=== PATIENT | male | born 1950 | race Caucasian/White ===

== ENCOUNTER 2016-08-11 15:23 | Emergency (ER) | payer OTHER ==
[~2016-08-11] VITALS: Ht 177.8 cm; Wt 55.0 kg
[~2016-08-11 15:23] MED LIST: ATEN-102 PO; POLY119S PO; PRAV40TA2 PO
[2016-08-11 15:26] VITALS: BP 120/68; PULSE 90; RESP 24; TEMP 97.5; O2SAT 89
== END 2016-08-11 19:34 | disposition left against medical advice (07) ==
LOC: NED 15:23
DX: R10.9 Unspecified abdominal pain (principal); Z53.21 Procedure and treatment not carried out due to patient leaving prior to being seen by health care provider
CPT/HCPCS: 99281

== ENCOUNTER 2016-08-28 12:29 | Observation (INO) | payer OTHER ==
[~2016-08-28] VITALS: Ht 177.8 cm; Wt 52.0 kg
[2016-08-28] VITALS (9 sets, daily range): BP systolic 86–126; BP diastolic 56–72; PULSE 69–94; RESP 14–22; TEMP 97.9–98.2; O2SAT 93–96
[2016-08-28] MEDS ORDERED: ONDA1TAB17 PO (13:15)
[2016-08-28] MEDS ORDERED: ATEN25TA PO (13:15)
[2016-08-28] MEDS ORDERED: OXYC1CON3 PO (13:15)
[2016-08-28] MEDS ORDERED: ALBU6.7H INH (13:15)
[2016-08-28] MEDS ORDERED: MULT-207 PO (13:15)
[2016-08-28] MEDS ORDERED: SPIRCAP INH (13:15)
[2016-08-28] MEDS ORDERED: SYMB160A INH (13:15)
[2016-08-28] MEDS ORDERED: OMEP20TA PO (13:15)
[2016-08-28] MEDS ORDERED: FENT50DI T-DERMAL (13:16)
[2016-08-28] MEDS ORDERED: SODIUM CHLOR 0.9% 1000 ML INJ 1,000 ML IV SCH (13:27)
--- NOTE | 2016-08-28 13:27 | PD ---
HPI Chief Complaint: GI Complaint Time Seen by Provider: 13:24 Travel History International Travel<30 days: No Contact w/Intl Traveler<30days: No Traveled to known affect area: No History of Present Illness HPI 66-year-old male with history of HTN, COPD, nonresectable gastric cancer, followed by Dr. Dos Santos presents to the ED for evaluation of intermittent abdominal pain, nausea and vomiting. The patient endorses several episodes of nonbloody, nonbilious vomiting over the last week. He states last bowel movement was 7 days ago. He endorses low fluid and food intake secondary to nausea and vomiting. He endorses chronic, nonproductive cough. No worse today. He denies chest pain, palpitations, back pain, dysuria. He endorses compliance with his daily medications. PFSH Past Medical History Chemotherapy: Yes (STOMACH CA) COPD: Yes Hypertension: Yes Respiratory: Yes (COPD) Influenza Vaccination: Yes Past Surgical History Surgical History: No Previous Surgery Social History Alcohol Use: Yes (quit 3 months. ) Tobacco Use: Yes (1 PPD) Substance Use: No Allergies-Medications (Allergen,Severity, Reaction): Coded Allergies: No Known Allergies (Unverified , 08/28/16) Reported Meds & Prescriptions Reported Meds & Active Scripts Active Reported Fentanyl Patch 72 HR (Fentanyl) 50 Mcg/Hr Patch 50 Mcg T-DERMAL Q72H Remove old patch when new one placed. Symbicort Inh (Budesonide/Formoterol Fumarate) 160-4.5 Mcg/Act Aero 1 Puff INH Q12HR Proventil Hfa 6.7 GM Inh (Albuterol Sulfate) 90 Mcg/Act Aer 2 Puff INH Q4-6H PRN Atenolol 25 Mg Tab 25 Mg PO DAILY One Daily (Multiple Vitamin) 1 Tab 1 Tab PO DAILY Spiriva Handihaler (Tiotropium Inh) 18 Mcg Cap 18 Mcg INH DAILY 1 capsule = 18 mcg Ondansetron (Ondansetron HCl) 8 Mg Tab 8 Mg PO TID Omeprazole 20 Mg Tab 20 Mg PO DAILY Oxycodone Liq (Oxycodone HCl) 20 Mg/Ml Conc 5 Mg PO Q6H Review of Systems Except as stated in HPI: all other systems reviewed are Neg Physical Exam Narrative GENERAL: Well-nourished, cachectic, pleasant white male in no acute distress. SKIN: Warm and dry. HEAD: Normocephalic. EYES: No scleral icterus. No injection or drainage. NECK: Supple, trachea midline. No JVD or lymphadenopathy. CARDIOVASCULAR: Regular rate and rhythm without murmurs, gallops, or rubs. RESPIRATORY: Breath sounds equal bilaterally. Diffuse, mild expiratory wheezing. No accessory muscle use. GASTROINTESTINAL: Abdomen scaphoid, soft, non-tender, nondistended. Active bowel sounds. MUSCULOSKELETAL: No cyanosis, or edema. BACK: Nontender without obvious deformity. No CVA tenderness. Data Data Last Documented VS Vital Signs Date Time Temp Pulse Resp B/P Pulse Ox O2 Delivery O2 Flow Rate FiO2 08/28/16 13:37 96 Room Air 08/28/16 13:06 98.2 82 18 86/64 Orders Complete Blood Count With Diff (08/28/16 13:27) Comprehensive Metabolic Panel (08/28/16 13:27) Lipase (08/28/16 13:27) Lactic Acid (08/28/16 13:27) Prothrombin Time / Inr (Pt) (08/28/16 13:27) Act Partial Throm Time (Ptt) (08/28/16 13:27) Urinalysis - C+S If Indicated (08/28/16 13:27) Iv Access Insert/Monitor (08/28/16 13:27) Ecg Monitoring (08/28/16 13:27) Oximetry (08/28/16 13:27) Morphine Inj (Morphine Inj) (08/28/16 13:30) Ondansetron Inj (Zofran Inj) (08/28/16 13:30) Sodium Chlor 0.9% 1000 Ml Inj (Ns 1000 M (08/28/16 13:27) Sodium Chloride 0.9% Flush (Ns Flush) (08/28/16 13:30) Potassium Chloride (Kcl) (08/28/16 14:45) Admit Order (Ed Use Only) (08/28/16 14:53) Labs Laboratory Tests Test 08/28/16 08/28/16 13:42 13:59 White Blood Count 11.4 TH/MM3 Red Blood Count 4.48 MIL/MM3 Hemoglobin 13.4 GM/DL Hematocrit 40.1 % Mean Corpuscular Volume 89.4 FL Mean Corpuscular Hemoglobin 30.0 PG Mean Corpuscular Hemoglobin 33.5 % Concent Red Cell Distribution Width 18.0 % Platelet Count 302 TH/MM3 Mean Platelet Volume 8.7 FL Neutrophils (%) (Auto) 78.5 % Lymphocytes (%) (Auto) 13.5 % Monocytes (%) (Auto) 7.1 % Eosinophils (%) (Auto) 0.4 % Basophils (%) (Auto) 0.5 % Neutrophils # (Auto) 9.0 TH/MM3 Lymphocytes # (Auto) 1.5 TH/MM3 Monocytes # (Auto) 0.8 TH/MM3 Eosinophils # (Auto) 0.0 TH/MM3 Basophils # (Auto) 0.1 TH/MM3 CBC Comment DIFF FINAL Differential Comment Prothrombin Time 11.2 SEC Prothromb Time International 1.0 RATIO Ratio Activated Partial 29.9 SEC Thromboplast Time Sodium Level 131 MEQ/L Potassium Level 3.1 MEQ/L Chloride Level 91 MEQ/L Carbon Dioxide Level 30.1 MEQ/L Anion Gap 10 MEQ/L Blood Urea Nitrogen 11 MG/DL Creatinine 0.48 MG/DL Estimat Glomerular Filtration 174 ML/MIN Rate Random Glucose 104 MG/DL Lactic Acid Level 1.0 mmol/L Calcium Level 9.1 MG/DL Total Bilirubin 0.5 MG/DL Aspartate Amino Transf 20 U/L (AST/SGOT) Alanine Aminotransferase 24 U/L (ALT/SGPT) Alkaline Phosphatase 99 U/L Total Protein 6.4 GM/DL Albumin 2.7 GM/DL Lipase 39 U/L Urine Color YELLOW Urine Turbidity CLOUDY Urine pH 7.0 Urine Specific [place] 1.015 Urine Protein TRACE mg/dL Urine Glucose (UA) NEG mg/dL Urine Ketones 10 mg/dL Urine Occult Blood NEG Urine Nitrite NEG Urine Bilirubin NEG Urine Urobilinogen 4.0 MG/DL Urine Leukocyte Esterase NEG Urine RBC 2 /hpf Urine WBC LESS THAN 1 /hpf Urine Amorphous Sediment OCC Urine Bacteria FEW /hpf Urine Mucus FEW /lpf Microscopic Urinalysis Comment CULT NOT INDICATED MDM Medical Decision Making Medical Screen Exam Complete: Yes Emergency Medical Condition: Yes Differential Diagnosis Intractable nausea and vomiting versus gastric cancer versus malnutrition versus electrolyte abnormality versus dehydration versus other Narrative Course 66-year-old male with history of HTN, COPD, nonresectable gastric cancer, followed by Dr. Dos Santos presents to the ED for evaluation of intermittent abdominal pain, nausea and vomiting. The patient endorses several episodes of nonbloody, nonbilious vomiting over the last week. He states last bowel movement was 7 days ago. He endorses low fluid and food intake secondary to nausea and vomiting. He endorses chronic, nonproductive cough. Vitals reviewed. Patient is afebrile, hypotensive, 86/64 on presentation. Physical exam reveals a cachectic, ill-appearing white male in no acute distress. Abdomen scaphoid, soft, nontender. IV was established. Patient was placed on continuous monitoring. He is administered fluid bolus, Zofran, morphine. CBC: WBC 11.4, 7 8.5% neutrophils. Hemoglobin 13.4. INR 1.0. CMP: Sodium 131, chloride 91. Potassium 3.1. Lactic acid 1.0. Lipase 3.9. UA: No culture indicated. Patient was administered 40 mg potassium by mouth. Review of the patient's record reveals Dr. Dos Santos recommended admission to the hospital for nutritional support and restaging scans on last visit of 08/24. The patient declined at that time but he is now amenable to hospital admission. Plan to admit to medicine. Spoke with Dr. Schwartz he agrees to admit the patient for observation. We'll consult Dr. Dos Santos as well. Please see oncology and medicine notes for disposition. Diagnosis Primary Impression: Failure to thrive in adult Additional Impressions: Dehydration Hypotension Qualified Code: I95.9 - Hypotension, unspecified hypotension type Intractable nausea and vomiting Qualified Code: R11.2 - Intractable vomiting with nausea, unspecified vomiting type Chronic pain Qualified Code: G89.3 - Chronic pain due to neoplasm Argelia Sawyer Aug 28, 2016 13:27
[2016-08-28] MEDS ORDERED: ONDANSETRON HCL 4 MG/2 ML VIAL IVP ONE (13:30)
[2016-08-28] MEDS ORDERED: MORPHINE SULFATE 4 MG/ML INJ IV PUSH ONE (13:30)
[2016-08-28] MEDS ORDERED: SODIUM CHLORIDE 0.9% FLUSH 5 ML FLUSH IVF PRN (13:30)
[2016-08-28 14:11] LABS: BASOPHIL # 0.1 TH/MM3 (0-0.2); BASOPHIL % 0.5 % (0.0-2.0); EOSINOPHIL % 0.4 % (0.0-4.0); HEMATOCRIT 40.1 % (39.0-51.0); HEMO FLAGS DIFF FINAL; LYMPH % 13.5 % (9.0-44.0); LYMPHOCYTE # 1.5 TH/MM3 (1.0-4.8); MEAN CELL VOLUME 89.4 FL (80.0-100.0); MEAN CORPUSCULAR HGB CONC 33.5 % (32.0-36.0); MONO % 7.1 % (0.0-8.0); NEUT % 78.5 % (16.0-70.0); PLATELET COUNT 302 TH/MM3 (150-450); RED BLOOD COUNT 4.48 MIL/MM3 (4.50-5.90); WHITE BLOOD COUNT 11.4 TH/MM3 (4.0-11.0)
[2016-08-28 14:23] LABS: APTT (PATIENT) 29.9 SEC (24.3-30.1); PROTHROMBIN TIME - PATIENT 11.2 SEC (9.8-11.6)
[2016-08-28 14:24] LABS: ANION GAP 10 MEQ/L (5-15); AST (GOT) 20 U/L (15-37); BICARBONATE 30.1 MEQ/L (21.0-32.0); BLOOD UREA NITROGEN 11 MG/DL (7-18); CHLORIDE 91 MEQ/L (98-107); GLOMERULAR FILTRATION RATE 174 ML/MIN (>89); POTASSIUM 3.1 MEQ/L (3.5-5.1); SODIUM (NA) 131 MEQ/L (136-145)
[2016-08-28 14:25] LABS: BACTERIA, URINE FEW /hpf; BLOOD, URINE NEG (NEG); COMMENT (UR) CULT NOT INDICATED; CULTURE IF INDICATED CULT NOT INDICATED; GLUCOSE,URINE NEG (NEG); KETONE, URINE 10 mg/dL (NEG); MUCUS URINE FEW /lpf (OCC); NITRITE,URINE NEG (NEG); URINE COLOR YELLOW (YELLW/STRAW)
[2016-08-28 14:27] LABS: ALKALINE PHOSPHATASE 99 U/L (45-117); ALT (GPT) 24 U/L (12-78); TOTAL BILIRUBIN ADULT 0.5 MG/DL (0.2-1.0)
[2016-08-28] MEDS ORDERED: POTASSIUM CHLORIDE 20 MEQ CONTROLLED RELEASE TAB PO ONE (14:45)
[2016-08-28] MEDS: POTASSIUM CHLORIDE INJ 30 MEQ in DEXT 5%-NACL 0.9% 1000 ML INJ 1,000 ML IV SCH (16:26)
[2016-08-28] MEDS ORDERED: SODIUM CHLORIDE 0.9% FLUSH 5 ML FLUSH FLUSH PRN (16:30)
[2016-08-28] MEDS ORDERED: RESP: ALBUTEROL 2.5 MG/3 ML NEB (PRN) NEB (16:30)
[2016-08-28] MEDS ORDERED: ONDANSETRON HCL 4 MG/2 ML VIAL IVP PRN (16:30)
[2016-08-28] MEDS ORDERED: BISACODYL 10 MG SUPP PR PRN (16:30)
[2016-08-28] MEDS ORDERED: MORPHINE SULFATE 4 MG/ML INJ IV PRN ×2 (16:30)
[2016-08-28] MEDS ORDERED: ACETAMINOPHEN 325 MG TAB PO PRN ×2 (16:30)
[2016-08-28] MEDS ORDERED: NALOXONE HCL 0.4 MG/ML AMP IV PRN (16:30)
[2016-08-28 16:32] LABS: MAGNESIUM 1.5 MG/DL (1.5-2.5)
--- NOTE | 2016-08-28 16:39 | HHI.HP ---
[facility] Burton Brown MD Admission Diagnosis failure to thrive, hypotension, intractable nausea and vomiting Diagnoses: Chief Complaint: Abdominal pain, nausea, constipation Travel History International Travel<30 Days: No Contact w/Intl Traveler <30 Da: No Traveled to Known Affected Are: No History of Present Illness The patient is a 66-year-old male recently diagnosed with gastric adenocarcinoma who is presenting to the hospital with severe abdominal pain, nausea and constipation. The patient says he was diagnosed with gastric cancer about 2-1/2 months ago. He was having epigastric pain and thought it might of been an ulcer. He had imaging and went to the hospital and he was diagnosed. He says he has had radiation treatments and 2 chemotherapy treatments but those were put on hold because of insurance problems. The patient says he now has new oncologist who he met a couple weeks ago. The patient has had increasing abdominal pain in the epigastric area. He says the pain is an 8 out of 10 in severity. He has been having nausea and vomited the other day. He has not had a bowel movement in 5-7 days. He says he has not passing any gas. He has been taking pain medications at home. He tried taking Dulcolax and a gas pill. He says it has been a few days since he has eaten something. He says that when he urinates he has dribbling and some of having a full stream and this is new. Review of Systems Constitutional: COMPLAINS OF: Change in appetite Eyes: DENIES: Blurred vision, Vision loss, Double Vision Respiratory: DENIES: Shortness of breath Cardiovascular: DENIES: Chest pain, Dyspnea on Exertion Gastrointestinal: COMPLAINS OF: Abdominal pain, Constipation, Nausea, Vomiting , Anorexia Genitourinary: COMPLAINS OF: Dysuria Past Family Social History Past Medical History Gastric adenocarcinoma COPD Allergies: Coded Allergies: No Known Allergies (Unverified , 08/28/16) Active Ordered Medications Current Medications Medications (Trade) Dose Ordered Sig/Davina Route Start Time Stop Time Status Last Admin IV Flush 2 ml 2 ml UNSCH PRN IVF 08/28/16 13:30 (KCl Inj/D5W-NS 1000 ml Inj) 1,015 ml @ 100 mls/hr Q10H9M IV 08/28/16 16:00 (Protonix Inj) 40 mg Q24H IV PUSH 08/28/16 16:15 UNV (Symbicort 160-4.5 Inh) 1 puff Q12HR INH 08/28/16 21:00 UNV (Duragesic 50 Mcg Patch.72 Hr) 1 patch Q72H T-DERMAL 08/28/16 16:15 UNV (Theragran) 1 tab DAILY PO 08/29/16 09:00 UNV (Spiriva Inh) 18 mcg DAILY INH 08/29/16 09:00 UNV Family History The patient denies pertinent family history. Social History The patient smokes half a pack daily. He hasn't had a drink in a while. Physical Exam Vital Signs Vital Signs Date Time Temp Pulse Resp B/P Pulse Ox O2 Delivery O2 Flow Rate FiO2 08/28/16 15:24 71 14 106/63 94 Nasal Cannula 2 08/28/16 13:37 96 Room Air 08/28/16 13:06 98.2 82 18 86/64 93 Physical Exam GENERAL: This is a well-nourished, well-developed patient, in no apparent distress. SKIN: No rashes, ecchymoses or lesions. Cool and dry. HEAD: Atraumatic. Normocephalic. No temporal or scalp tenderness. EYES: Pupils equal round and reactive. Extraocular motions intact. No scleral icterus. No injection or drainage. ENT: Nose without bleeding, purulent drainage or septal hematoma. Throat without erythema, tonsillar hypertrophy or exudate. Uvula midline. Airway patent. NECK: Trachea midline. No JVD or lymphadenopathy. Supple, nontender, no meningeal signs. CARDIOVASCULAR: Regular rate and rhythm without murmurs, gallops, or rubs. RESPIRATORY: Mild wheezing and scattered rhonchi. GASTROINTESTINAL: Positive bowel sounds. Abdomen scaphoid. Generalized tenderness to palpation. MUSCULOSKELETAL: Extremities without clubbing, cyanosis, or edema. No joint tenderness, effusion, or edema noted. NEUROLOGICAL: Awake and alert. Cranial nerves II through XII intact. Motor and sensory grossly within normal limits. Five out of 5 muscle strength in all muscle groups. Normal speech. PSYCH: Mood and affect appropriate. Laboratory Laboratory Tests Test 08/28/16 08/28/16 13:42 13:59 White Blood Count 11.4 Red Blood Count 4.48 Hemoglobin 13.4 Hematocrit 40.1 Mean Corpuscular Volume 89.4 Mean Corpuscular Hemoglobin 30.0 Mean Corpuscular Hemoglobin 33.5 Concent Red Cell Distribution Width 18.0 Platelet Count 302 Mean Platelet Volume 8.7 Neutrophils (%) (Auto) 78.5 Lymphocytes (%) (Auto) 13.5 Monocytes (%) (Auto) 7.1 Eosinophils (%) (Auto) 0.4 Basophils (%) (Auto) 0.5 Neutrophils # (Auto) 9.0 Lymphocytes # (Auto) 1.5 Monocytes # (Auto) 0.8 Eosinophils # (Auto) 0.0 Basophils # (Auto) 0.1 CBC Comment DIFF FINAL Differential Comment Prothrombin Time 11.2 Prothromb Time International 1.0 Ratio Activated Partial 29.9 Thromboplast Time Sodium Level 131 Potassium Level 3.1 Chloride Level 91 Carbon Dioxide Level 30.1 Anion Gap 10 Blood Urea Nitrogen 11 Creatinine 0.48 Estimat Glomerular Filtration 174 Rate Random Glucose 104 Lactic Acid Level 1.0 Calcium Level 9.1 Total Bilirubin 0.5 Aspartate Amino Transf 20 (AST/SGOT) Alanine Aminotransferase 24 (ALT/SGPT) Alkaline Phosphatase 99 Total Protein 6.4 Albumin 2.7 Lipase 39 Urine Color YELLOW Urine Turbidity CLOUDY Urine pH 7.0 Urine Specific [place] 1.015 Urine Protein TRACE Urine Glucose (UA) NEG Urine Ketones 10 Urine Occult Blood NEG Urine Nitrite NEG Urine Bilirubin NEG Urine Urobilinogen 4.0 Urine Leukocyte Esterase NEG Urine RBC 2 Urine WBC LESS THAN 1 Urine Amorphous Sediment OCC Urine Bacteria FEW Urine Mucus FEW Microscopic Urinalysis Comment CULT NOT INDICATED Result Diagram: 08/28/16 1342 08/28/16 1342 Assessment and Plan Assessment and Plan Abdominal pain/nausea/constipation The pt was recently diagnosed with gastric adenocarcinoma. He presents with worsening abdominal pain, nausea and constipation. Concerning for an ileus. He takes a lot of opiate medications. - keep the pt NPO with IVFs. - IV PPI. - pain medications and antiemetics as needed. - CT abdomen and pelvis pending. - NG tube if needed. - monitor electrolytes and replete as needed. Gastric adenocarcinoma Diagnosed 2.5 months ago. The pt started chemoradiation but had insurance issues so those have been put on hold. - consult the pt's oncologist, Dr. Dos Santos. - treatment as above. Hypokalemia S/t decreased PO intake. - replete. - check Mg and phos levels. COPD The pt continues to smoke 1/2 PPD. - cessation instruction. - continue home inhalers. - oxygen and albuterol nebs as needed. - IS. PPx: Lovenox. Code Status Full Discussed Condition With Pt, Argelia Sawyer, nurse Sai Schwartz DO Aug 28, 2016 16:39
[2016-08-28] MEDS ORDERED: DIATRIZOATE MEGLUM/DIATRIZOATE SOD 9 ML CUP ONE (16:54)
[2016-08-28] MEDS ORDERED: DIATRIZOATE MEGLUM/DIATRIZOATE SOD 9 ML CUP PO ONE (17:00)
[2016-08-28] MEDS: PANTOPRAZOLE SODIUM 40 MG VIAL IV PUSH SCH (17:00)
[2016-08-28] MEDS: ENOXAPARIN SODIUM 30 MG/0.3 ML SYRINGE SQ SCH (17:01)
[2016-08-28] MEDS ORDERED: fentaNYL 50 MCG/HR PATCH T-DERMAL SCH (18:00)
[2016-08-28] MEDS ORDERED: IOHEXOL 350 MG/ML 10 ML VIAL (for RAD DIAG) IV ONE (19:13)
--- NOTE | 2016-08-28 19:35 | RADRPT ---
EXAM DATE/TIME: 08/28/2016 19:11 [place] COMPARISON: CT ABDOMEN & PELVIS W CONTRAST, April 23, 2016, 17:47. INDICATIONS : Diffuse abdominal pain. IV CONTRAST: 98 cc Omnipaque 350 (iohexol) IV ORAL CONTRAST: No oral contrast ingested. RADIATION DOSE: 4.64 CTDIvol (mGy) MEDICAL HISTORY : Hypertension. Chronic obstructive pulmonary disease. Stomach cancer. SURGICAL HISTORY : None. ENCOUNTER: Initial ACUITY: 1 day PAIN SCALE: 0/10 LOCATION: Bilateral abdomen TECHNIQUE: Volumetric scanning of the abdomen and pelvis was performed. Using automated exposure control and ad justment of the mA and/or kV according to patient size, radiation dose was kept as low as reasonably achievable to obtain optimal diagnostic quality images. FINDINGS: LOWER LUNGS: The visualized lower lungs are clear. LIVER: Homogeneous density without lesion. There is no dilation of the biliary tree. No calcified gallston es. SPLEEN: Normal size without lesion. PANCREAS: Atrophic without mass lesions. KIDNEYS: Horse shoe kidney. There is no mass, stone or hydronephrosis. ADRENAL GLANDS: Within normal limits. VASCULAR: There is no aortic aneurysm. BOWEL/MESENTERY: There is stool scattered throughout the proximal colon with decompression of the descending and sigmo id portions. Of note, the mid: Actually passes anterior to the body of the stomach with a loop positi oned just inferior to the heart. This may represent an early herniation into the base of the pericard ial sac. There is no bowel obstruction, however ABDOMINAL WALL: Within normal limits. RETROPERITONEUM: There is no lymphadenopathy. BLADDER: No wall thickening or mass. REPRODUCTIVE: Within normal limits. INGUINAL: There is no lymphadenopathy or hernia. MUSCULOSKELETAL: Within normal limits for patient age. CONCLUSION: 1. Stool in the proximal colon to the level of the splenic flexure. 2. There is a loop of the mid transverse colon which actually extends cephalad anterior to the stomac h and is positioned just below the base of the heart. This could represent an early pericardial herni a with a loop of bowel just at the base of the hernia sac. There is no obstruction. Sagittal reconstr uctions of the existing CT data may be useful for further characterization. 3. Horseshoe kidney. 4. Atrophic changes of the pancreas Chase Lomeli MD on August 28, 2016 at 19:27 Board Certified Radiologist. This report was verified electronically.
[2016-08-28] MEDS: BUDESONIDE-FORMOTEROL 160/4.5 MCG INHALER INH SCH (20:23)
[2016-08-28] MEDS: SODIUM CHLORIDE 0.9% FLUSH 5 ML FLUSH FLUSH SCH (20:24)
[2016-08-29] VITALS (7 sets, daily range): BP systolic 92–120; BP diastolic 53–68; PULSE 66–77; RESP 16–20; TEMP 96.5–98.2; O2SAT 93–96
[2016-08-29] MEDS: MORPHINE SULFATE 4 MG/ML INJ IV PRN ×3 (00:06→22:07)
[2016-08-29] MEDS: POTASSIUM CHLORIDE INJ 30 MEQ in DEXT 5%-NACL 0.9% 1000 ML INJ 1,000 ML IV SCH ×3 (02:50→22:27)
[2016-08-29 07:28] LABS: BICARBONATE 29.7 MEQ/L (21.0-32.0); POTASSIUM 3.5 MEQ/L (3.5-5.1)
[2016-08-29] MEDS: MULTIVITAMIN TAB PO SCH (08:20)
[2016-08-29] MEDS: MAGNESIUM SULFATE 1 GM PREMIX 100 ML IV SCH ×2 (09:00→12:01)
[2016-08-29] MEDS: TIOTROPIUM BROMIDE 18 MCG INH INH SCH (09:00)
[2016-08-29] MEDS: SODIUM CHLORIDE 0.9% FLUSH 5 ML FLUSH FLUSH SCH ×2 (09:00→22:07)
[2016-08-29] MEDS: BUDESONIDE-FORMOTEROL 160/4.5 MCG INHALER INH SCH ×2 (09:17→22:07)
[2016-08-29] MEDS ORDERED: METHYLNALTREXONE BROMIDE 12 MG/0.6 ML VIAL SQ ONE (15:30)
--- NOTE | 2016-08-29 16:34 | HHI.PR ---
Subjective Remarks The patient was getting agitated and wanted to eat something. He said he has been passing minimal gas. He has not been vomiting. Friend at the bedside. Discussed with nursing and GI. Objective Vitals Vital Signs Date Time Temp Pulse Resp B/P Pulse Ox O2 Delivery O2 Flow Rate FiO2 08/29/16 16:15 97.8 74 18 120/68 96 08/29/16 14:28 93 Nasal Cannula 2.00 08/29/16 12:26 97.9 74 20 106/65 93 08/29/16 09:07 96.5 70 18 116/67 94 08/29/16 03:45 98.2 66 20 100/53 95 08/28/16 23:44 97.9 94 18 100/61 95 08/28/16 20:05 98.2 76 22 126/72 95 08/28/16 20:00 96 Nasal Cannula 2.00 08/28/16 19:41 77 16 116/56 96 Nasal Cannula 2 08/28/16 17:01 96 Nasal Cannula 2.00 08/28/16 16:31 69 18 112/64 93 Room Air I/O 08/28/16 08/28/16 08/28/16 08/29/16 08/29/16 08/29/16 07:00 15:00 23:00 07:00 15:00 23:00 Intake Total 1489 ml Output Total 550 ml Balance 939 ml Intake Oral 240 ml IV Total 1249 ml Output Urine Total 550 ml # Voids 3 Result Diagram: 08/28/16 1342 08/29/16 0634 Imaging Last Impressions Abdomen/Pelvis CT 08/28/16 0000 Signed Impressions: Service Date/Time: Sunday, August 28, 2016 19:11 - CONCLUSION: 1. Stool in the proximal colon to the level of the splenic flexure. 2. There is a loop of the mid transverse colon which actually extends cephalad anterior to the stomach and is positioned just below the base of the heart. This could represent an early pericardial hernia with a loop of bowel just at the base of the hernia sac. There is no obstruction. Sagittal reconstructions of the existing CT data may be useful for further characterization. 3. Horseshoe kidney. 4. Atrophic changes of the pancreas Chase Lomeli MD Objective Remarks GENERAL: This is a well-nourished, well-developed patient, in no apparent distress. SKIN: No rashes, ecchymoses or lesions. Cool and dry. HEAD: Atraumatic. Normocephalic. No temporal or scalp tenderness. EYES: Pupils equal round and reactive. Extraocular motions intact. No scleral icterus. No injection or drainage. ENT: Nose without bleeding, purulent drainage or septal hematoma. Throat without erythema, tonsillar hypertrophy or exudate. Uvula midline. Airway patent. NECK: Trachea midline. No JVD or lymphadenopathy. Supple, nontender, no meningeal signs. CARDIOVASCULAR: Regular rate and rhythm without murmurs, gallops, or rubs. RESPIRATORY: Mild wheezing and scattered rhonchi. GASTROINTESTINAL: Positive bowel sounds. Abdomen scaphoid. Generalized tenderness to palpation. MUSCULOSKELETAL: Extremities without clubbing, cyanosis, or edema. No joint tenderness, effusion, or edema noted. NEUROLOGICAL: Awake and alert. Cranial nerves II through XII intact. Motor and sensory grossly within normal limits. Five out of 5 muscle strength in all muscle groups. Normal speech. PSYCH: Mood and affect appropriate. Medications and IVs Current Medications Medications (Trade) Dose Ordered Sig/Davina Route Start Time Stop Time Status Last Admin (KCl Inj/D5W-NS 1000 ml Inj) 1,015 ml @ 100 mls/hr Q10H9M IV 08/28/16 16:00 08/29/16 12:02 (Protonix Inj) 40 mg Q24H IV PUSH 08/28/16 17:00 08/28/16 17:00 (Symbicort 160-4.5 Inh) 1 puff Q12HR INH 08/28/16 21:00 08/29/16 09:17 (Duragesic 50 Mcg Patch.72 Hr) 1 patch Q72H T-DERMAL 08/28/16 18:00 08/28/16 19:19 (Theragran) 1 tab DAILY PO 08/29/16 09:00 (Spiriva Inh) 18 mcg DAILY INH 08/29/16 09:00 08/29/16 09:00 (NS Flush) 2 ml UNSCH PRN FLUSH 08/28/16 16:30 (NS Flush) 2 ml BID FLUSH 08/28/16 21:00 08/28/16 20:24 (Tylenol) 650 mg Q4H PRN PO 08/28/16 16:30 (Zofran Inj) 4 mg Q6H PRN IVP 08/28/16 16:30 (Dulcolax Supp) 10 mg DAILY PRN TX 08/28/16 16:30 (Lovenox Inj) 30 mg Q24H SQ 08/28/16 17:00 08/28/16 17:01 (Tylenol) 650 mg Q6H PRN PO 08/28/16 16:30 (Morphine Inj) 2 mg Q3H PRN IV 08/28/16 16:30 08/29/16 05:21 (Morphine Inj) 4 mg Q3H PRN IV 08/28/16 16:30 (Morphine Inj) 4 mg Q3H PRN IV 08/28/16 16:30 08/28/16 20:24 (Narcan Inj) 0.4 mg UNSCH PRN IV 08/28/16 16:30 Miscellaneous Information 1 Q3D TD 08/31/16 18:00 A/P Assessment and Plan Abdominal pain/nausea/constipation The pt was recently diagnosed with gastric adenocarcinoma. He presents with worsening abdominal pain, nausea and constipation. Concerning for an ileus. He takes a lot of opiate medications. CT showed: Stool in the proximal colon to the level of the splenic flexure; There is a loop of the mid transverse colon which actually extends cephalad anterior to the stomach and is positioned just below the base of the heart; This could represent an early pericardial hernia with a loop of bowel just at the base of the hernia sac; There is no obstruction. GI consult appreciated. - advance to clear liquids with IVFs. - general surgery consult pending. - IV PPI. - pain medications and antiemetics as needed. - NG tube if needed. - monitor electrolytes and replete as needed. - enemas and methylnaltrexone per GI. Gastric adenocarcinoma Diagnosed 2.5 months ago. The pt started chemoradiation but had insurance issues so those have been put on hold. - consult the pt's oncologist, Dr. Dos Santos. - treatment as above. Hypokalemia S/t decreased PO intake. - replete and monitor. - on IVFs with KCl. COPD The pt continues to smoke 1/2 PPD. - cessation instruction. - continue home inhalers. - oxygen and albuterol nebs as needed. - IS. PPx: Lovenox. Discharge Planning Awaiting clinical improvement. Sai Schwartz DO Aug 29, 2016 16:34
[2016-08-29] MEDS: ENOXAPARIN SODIUM 30 MG/0.3 ML SYRINGE SQ SCH (16:47)
[2016-08-29] MEDS: PANTOPRAZOLE SODIUM 40 MG VIAL IV PUSH SCH (16:47)
--- NOTE | 2016-08-29 19:18 | MB ---
cc: JO SOLARES DATE OF CONSULTATION: 08/29/2016. REASON FOR CONSULTATION: The patient has a history of stage IV gastric adenocarcinoma who presents with abdominal pain, decreased p.o. intake, dehydration and failure to thrive. CHIEF COMPLAINT: Abdominal pain, weight loss and fatigue. HISTORY OF PRESENT ILLNESS: Mr. 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 He had presented with weight loss, abdominal pain and loss of appetite. He underwent concurrent chemotherapy and radiation treatments up front. He was treated with carboplatin and Taxol. He received palliative radiation treatments. The patient was seen by my colleague, Dr. Dos Santos, in the clinic last week. The patient was found to be in pain and appeared to have malnutrition. He was recommended a hospital admission; however, he declined the hospital admission. Outpatient restaging imaging was ordered. The patient now presents with persistent abdominal pain, weight loss, dehydration and malnutrition. On admission, he had a CT of the abdomen and pelvis which did not show any overt metastatic disease. There was a loop of mid transverse colon which extended cephalad into the stomach and was positioned below the base of the heart. This appeared to be early pericardial hernia. There was no obstruction. The patient was admitted to the hospital. He has been placed on a pain medication regimen and antiemetics. The patient has had poor performance status and his ECOG performance status is 2 to 3. REVIEW OF SYSTEMS: A comprehensive fourteen-point review of systems was completed which is negative except as described in the history of present illness. PAST MEDICAL HISTORY: 1. Stage IV high-grade adenocarcinoma of the stomach. 2. COPD. 3. Gastroesophageal reflux disease. 4. Hypercholesterolemia. 5. Hypertension. 6. History of radiation therapy. PAST SURGICAL HISTORY: 1. EGD. 2. Placement of infusion port. 3. Colonoscopy in 2014. FAMILY HISTORY: His father of lung cancer. His sister had some sort of cancer as well. SOCIAL HISTORY: He is single. He is a smoker and smokes about half a pack a day for fifty years. He consumes two alcoholic beverages per day. MEDICATIONS: 1. Fentanyl patch 72 micrograms q. 72 hours. 2. Lortab 5 / 325 one tablet p.o. q. 4 hours PRN. 3. Multivitamins. 4. Omeprazole 20 milligrams one tablet p.o. daily. 5. Zofran 8 milligrams one tablet p.o. three times a day. 6. Oxycodone. 7. Pravastatin 40 milligrams daily. 8. Proventil HFA. 9. Spiriva 18 micrograms twice a day. ALLERGIES: NO KNOWN DRUG ALLERGIES. LABORATORY DATA: WBC is 11.4, hemoglobin is 13.4, platelet count is 302,000. Serum chemistries show a sodium 136, potassium 3.5, chloride 100, BUN is 6, creatinine is 0.4, GFR is 209, lactic acid is 126, calcium is 8, phosphorus 3.6, magnesium is 1.5, total bilirubin is 0.5, AST 20, ALT 24, alkaline phosphatase 99, total protein is 6.4, albumin is 2.7, lipase is 39. Coags show PT of 11.2, INR is 1, PTT 29. Urinalysis shows urobilinogen 4, urine ketones 10. IMAGING STUDIES: Imaging was reviewed in the electronic medical record. ASSESSMENT AND PLAN: This is a 56-year-old male with a diagnosis of stage IV gastric adenocarcinoma. He has undergone chemotherapy treatments with carboplatin and Taxol. He has also received palliative radiation treatments who presents with intractable abdominal pain, nausea, vomiting and dehydration. 1. Stage IV gastric adenocarcinoma status post chemotherapy and radiation. I have reviewed his CT scan of the abdomen and pelvis and there is no overt metastatic disease. There is no evidence of obstruction. There is a question of a loop of mid transverse colon extending anterior to the stomach below the base of the heart representing an early pericardial hernia. We will ask surgery for their opinion regarding this as to whether this is a source of the patient's abdominal pain. Additionally, the patient will need an EGD since he has not had an EGD since the completion of his chemotherapy and radiation. I would recommend continued pain control with IV morphine. He is currently on morphine 2 milligrams IV q. 3 hours for pain. Additionally, he also had a Fentanyl patch 75 micrograms q. 72 hours. We would also need a CT of the chest to assess his disease. 2. Persistent nausea. Scheduled IV Zofran 8 milligrams q.8 h for 48 hours. Compazine p.r.n. for breakthrough nausea. 3. Malnutrition. I encouraged him to eat smaller meals throughout the day. We will obtain a dietary consult. Will supplement the patient's diet with Ensure or Boost three times a day. 4. Dehydration. IV fluids and electrolyte replacement as needed. 5. COPD. Smoking cessation counseling. Currently on home inhalers. Thank you for allowing me to participate in the care of this patient. Dr. Dos Santos will return on Tuesday to assume the care of this patient. MD FRIDA Sandoval/ALESSANDRA /1:39 PM /6:58 PM
[2016-08-29] MEDS ORDERED: HEPARIN SOD PF 100 UNITS/ML VIAL IV FLUSH ONE (20:10)
[2016-08-29] MEDS ORDERED: IOHEXOL 350 MG/ML 10 ML VIAL (for RAD DIAG) IV ONE (20:10)
--- NOTE | 2016-08-29 20:30 | RADRPT ---
EXAM DATE/TIME: 08/29/2016 20:08 [facility] COMPARISON: No previous studies available for comparison. INDICATIONS : History of gastric cancer. Slight chest discomfort. IV CONTRAST: 75 cc Omnipaque 350 (iohexol) IV RADIATION DOSE: 3.36 CTDIvol (mGy) MEDICAL HISTORY : Hypertension. Chronic obstructive pulmonary disease. Gastric cancer. SURGICAL HISTORY : None. ENCOUNTER: Initial ACUITY: 1 day PAIN SCALE: 0/10 LOCATION: chest TECHNIQUE: Volumetric scanning of the chest was performed. Using automated exposure control and adjustment of t he mA and/or kV according to patient size, radiation dose was kept as low as reasonably achievable to obtain optimal diagnostic quality images. FINDINGS: LUNGS: The lungs are hyperinflated. There is no consolidation or pneumothorax. No concerning pulmonary nodu le is visualized. PLEURA: There is no pleural thickening or pleural effusion. MEDIASTINUM: The heart and great vessels demonstrate no acute abnormality. There is no mediastinal or hilar lymph adenopathy. There is a right-sided Vmbetd-r-Cmhu in place. AXILLAE: Within normal limits. No lymphadenopathy. SKELETAL: Within normal limits for patient age. MISCELLANEOUS: The visualized upper abdominal organs demonstrate no acute abnormality. CONCLUSION: No pulmonary nodules are seen. The lungs are hyperinflated. Bharath Franklin MD on August 29, 2016 at 20:25 Board Certified Radiologist. This report was verified electronically.
--- NOTE | 2016-08-29 22:02 | MB ---
cc: ERASMO PRASAD M.D., MICHAEL J. DO JACKSON, JON C. M.D. DATE OF CONSULTATION 08/29/2016 REASON FOR CONSULTATION Abdominal pain, obstipation. HISTORY OF THE PRESENT ILLNESS Mr. Mario is a 66-year-old gentleman who states last year he was diagnosed with gastric cancer. He started chemotherapy and radiation therapy with Dr. Rivera. But then he says that his doctor moved to [place] and his treatment was interrupted. He says he basically presents now with worsening abdominal pain, nausea, vomiting and constipation. He says he has had no bowel movement in the last 5-7 days in spite of taking laxatives. He is in the process of being established with Dr. Julio Dos Santos now for his gastric cancer. He cannot remember the name of the doctor that did his previous endoscopy. REVIEW OF SYSTEMS Abdominal pain. No bleeding. PAST MEDICAL HISTORY 1. Gastric adenocarcinoma. 2. COPD. ALLERGIES None documented. MEDICATIONS Include: 1. Fentanyl patch. 2. Protonix. FAMILY HISTORY Noncontributory. SOCIAL HISTORY The patient is a smoker. Does not drink alcohol. PHYSICAL EXAMINATION GENERAL: Reveals a well-nourished man in no apparent distress. VITAL SIGNS: Vitals are stable. HEAD AND NECK: Examination anicteric sclerae. CHEST: Bilateral air entry with rales. ABDOMEN: Soft, tenderness to palpation. Bowel sounds are present. PARQUET FLOOR LAYER: Exam is nonfocal. RECTAL: Exam deferred at this time. LABORATORY DATA Labs reveal creatinine of 0.41. INR is 1.0. Hemoglobin is 13.4. IMAGING CT scan of the abdomen and pelvis reveals stool scattered throughout the proximal colon with decompression of the descending and sigmoid portions. There is a portion of loop of the colon that passes anterior to the body of the stomach and is positioned just inferior to the heart raising the possibility of an early herniation at the base of the pericardial sac. There is no obvious bowel obstruction. No mention is made of the patient's gastric cancer. IMPRESSION Constipation which may be secondary to narcotics as well as the patient's possible bowel herniation. RECOMMENDATIONS General surgery consult has been requested. Soapsuds enemas and one shot of Relistor subcu for today requested. The patient may need endoscopy early next week as well. This has been discussed with the patient and his stitcher operator. We will follow with you. Thank you for this referral. MD ELIJAH Cardoso /3:25 PM /9:54 PM
[2016-08-30 03:59] VITALS: BP 106/66; PULSE 79; RESP 12; TEMP 97.3; O2SAT 94
[2016-08-30 04:34] LABS: HEMATOCRIT 34.3 % (39.0-51.0); MEAN CELL VOLUME 88.4 FL (80.0-100.0); MEAN CORPUSCULAR HEMOGLOBIN 30.1 PG (27.0-34.0); PLATELET COUNT 245 TH/MM3 (150-450); RED BLOOD COUNT 3.88 MIL/MM3 (4.50-5.90); RED CELL DISTRIBUTION WIDTH 17.6 % (11.6-17.2); REVIEW FLAG FINAL; WHITE BLOOD COUNT 6.2 TH/MM3 (4.0-11.0)
[2016-08-30 05:05] LABS: BICARBONATE 28.2 MEQ/L (21.0-32.0); MAGNESIUM 1.6 MG/DL (1.5-2.5); POTASSIUM 3.2 MEQ/L (3.5-5.1)
[2016-08-30] MEDS: MULTIVITAMIN TAB PO SCH (07:46)
--- NOTE | 2016-08-30 07:46 | PD.ONC.PN ---
Subjective Subjective Remarks Mr. Mario reports feeling improved this morning, his abdominal pain in particular has decreased since he had 2 bowel movements over the course of the past 24 hours. He reports his appetite remains poor. He did undergo CT scan of the chest, abdomen and pelvis over the weekend and there was no evidence of distal metastatic disease or measurable disease for that matter. He was noted to have what appeared to be a colonic hernia in the sub- pericardial region. Objective Data Date Time Temp Pulse Resp B/P Pulse Ox O2 Delivery O2 Flow Rate FiO2 08/30/16 03:59 97.3 79 12 106/66 94 08/29/16 23:42 97.4 77 20 92/57 93 08/29/16 20:47 97.0 76 16 113/66 95 08/29/16 16:15 97.8 74 18 120/68 96 08/29/16 14:28 93 Nasal Cannula 2.00 08/29/16 12:26 97.9 74 20 106/65 93 08/29/16 09:07 96.5 70 18 116/67 94 08/30/16 08/30/16 08/30/16 07:00 15:00 23:00 Intake Total 1296 ml Output Total 650 ml Balance 646 ml Result Diagram: 08/30/16 0409 08/30/16 0409 Laboratory Results Laboratory Tests Test 08/30/16 04:09 White Blood Count 6.2 TH/MM3 Red Blood Count 3.88 MIL/MM3 Hemoglobin 11.7 GM/DL Hematocrit 34.3 % Mean Corpuscular Volume 88.4 FL Mean Corpuscular Hemoglobin 30.1 PG Mean Corpuscular Hemoglobin 34.0 % Concent Red Cell Distribution Width 17.6 % Platelet Count 245 TH/MM3 Mean Platelet Volume 8.2 FL Sodium Level 134 MEQ/L Potassium Level 3.2 MEQ/L Chloride Level 99 MEQ/L Carbon Dioxide Level 28.2 MEQ/L Anion Gap 7 MEQ/L Blood Urea Nitrogen 3 MG/DL Creatinine 0.30 MG/DL Estimat Glomerular Filtration 300 ML/MIN Rate Random Glucose 117 MG/DL Calcium Level 7.9 MG/DL Magnesium Level 1.6 MG/DL Administered Medications Medications (Trade) Dose Ordered Sig/Davina Route PRN Reason Start Time Stop Time Status Last Admin Dose Admin Potassium Chloride/Dextrose/ Sodium Chloride (KCl Inj/D5W-NS 1000 ml Inj) 1,015 ml @ 100 mls/hr Q10H9M IV 08/28/16 16:00 08/29/16 22:27 Pantoprazole Sodium (Protonix Inj) 40 mg Q24H IV PUSH 08/28/16 17:00 08/29/16 16:47 Budesonide/ Formoterol Fumarate (Symbicort 160-4.5 Inh) 1 puff Q12HR INH 08/28/16 21:00 08/29/16 22:07 Fentanyl (Duragesic 50 Mcg Patch.72 Hr) 1 patch Q72H T-DERMAL 08/28/16 18:00 08/28/16 19:19 Tiotropium Crum (Spiriva Inh) 18 mcg DAILY INH 08/29/16 09:00 08/29/16 09:00 IV Flush (NS Flush) 2 ml BID FLUSH 08/28/16 21:00 08/29/16 22:07 Enoxaparin Sodium (Lovenox Inj) 30 mg Q24H SQ 08/28/16 17:00 08/29/16 16:47 Morphine Sulfate (Morphine Inj) 2 mg Q3H PRN IV Pain 3-5; if unable to take PO 08/28/16 16:30 08/29/16 22:07 Morphine Sulfate (Morphine Inj) 4 mg Q3H PRN IV BREAKTHROUGH PAIN 08/28/16 16:30 08/28/16 20:24 Objective Remarks GENERAL: Middle-aged male, is thin and your cachectic appearing, chronically ill but not acutely distressed. SKIN: Warm and dry. HEAD: Normocephalic. EYES: No scleral icterus. No injection or drainage. NECK: Supple, trachea midline. No JVD or lymphadenopathy. LYMPHATIC: No adenopathy. CARDIOVASCULAR: Regular rate and rhythm without murmurs. RESPIRATORY: Breath sounds equal bilaterally. No accessory muscle use. GASTROINTESTINAL: Thin abdomen, tender over the epigastric area, no palpable organ enlargement, positive bowel sounds EXTREMITIES: No cyanosis, or edema. MUSCULOSKELETAL: Decreased muscle mass, adequate tone. NEUROLOGICAL: No obvious focal deficit. Awake, alert, and oriented x3. PSYCHIATRIC: Appropriate mood and affect; insight and judgment normal. Assessment/Plan Assessment 66-year-old male with a diagnosis of locally advanced nonresectable high-grade gastric adenocarcinoma (HER-2 status not known). He was treated by [facility] with concurrent chemoradiotherapy with weekly carboplatin and Taxol. Treatment was completed in mid July 2016. After this he transferred his oncology care to [facility] and was seen by me in the outpatient setting in mid August 2016. Restaging studies have been ordered, plans for maintenance systemic chemotherapy /palliative systemic chemotherapy were underway. He presented to the hospital with complaints of abdominal pain mostly in the epigastric region on 08/28/16 and imaging revealed constipation and a possible colonic hernia. Over the course of this admission he has undergone soap and water enema and management for his opioid-induced constipation. Plan 1. Gastric adenocarcinoma: Currently without evidence of significant measurable disease. I will request HER-2 testing on the original tumor sample to determine if the patient may benefit from anti-HER-2 therapy in combination with conventional palliative systemic chemotherapy going forward. 2. Pain: Continue long and short opioids for management of pain. 3. Constipation: Likely opioid induced, soap water enema helped. 4. Colonic hernia: Await Surgery evaluation. Julio Dos Santos MD Aug 30, 2016 07:46
[2016-08-30] MEDS: TIOTROPIUM BROMIDE 18 MCG INH INH SCH (07:47)
[2016-08-30] MEDS: POTASSIUM CHLORIDE INJ 30 MEQ in DEXT 5%-NACL 0.9% 1000 ML INJ 1,000 ML IV SCH ×2 (07:47→18:19)
[2016-08-30] MEDS: BUDESONIDE-FORMOTEROL 160/4.5 MCG INHALER INH SCH ×2 (07:47→20:45)
[2016-08-30] MEDS: SODIUM CHLORIDE 0.9% FLUSH 5 ML FLUSH FLUSH SCH ×2 (07:48→20:45)
--- NOTE | 2016-08-30 08:05 | HHI.PR ---
Subjective Remarks Follow up abdominal pain, constipation. Patient states that he feels much better today. Abdominal pain is 1/10. Wants to go home. Objective Vitals Vital Signs Date Time Temp Pulse Resp B/P Pulse Ox O2 Delivery O2 Flow Rate FiO2 08/30/16 03:59 97.3 79 12 106/66 94 08/29/16 23:42 97.4 77 20 92/57 93 08/29/16 20:47 97.0 76 16 113/66 95 08/29/16 16:15 97.8 74 18 120/68 96 08/29/16 14:28 93 Nasal Cannula 2.00 08/29/16 12:26 97.9 74 20 106/65 93 08/29/16 09:07 96.5 70 18 116/67 94 I/O 08/29/16 08/29/16 08/29/16 08/30/16 08/30/16 08/30/16 06:59 14:59 22:59 06:59 14:59 22:59 Intake Total 1489 ml 1296 ml Output Total 550 ml 650 ml Balance 939 ml 646 ml Intake Oral 240 ml 360 ml IV Total 1249 ml 936 ml Output Urine Total 550 ml 650 ml # Voids 3 6 # Bowel Movements 3 Result Diagram: 08/30/16 0409 08/30/16 0409 Imaging Last Impressions Chest CT 08/29/16 0000 Signed Impressions: Service Date/Time: Monday, August 29, 2016 20:08 - CONCLUSION: No pulmonary nodules are seen. The lungs are hyperinflated. Bharath Franklin MD Abdomen/Pelvis CT 08/28/16 0000 Signed Impressions: Service Date/Time: Sunday, August 28, 2016 19:11 - CONCLUSION: 1. Stool in the proximal colon to the level of the splenic flexure. 2. There is a loop of the mid transverse colon which actually extends cephalad anterior to the stomach and is positioned just below the base of the heart. This could represent an early pericardial hernia with a loop of bowel just at the base of the hernia sac. There is no obstruction. Sagittal reconstructions of the existing CT data may be useful for further characterization. 3. Horseshoe kidney. 4. Atrophic changes of the pancreas Chase Lomeli MD Objective Remarks General: No acute distress. Heart: Regular rate and rhythm. No murmur. Lungs: Clear to auscultation bilaterally. No wheezes, rales, or rhonchi. Breathing is nonlabored. Abdomen: Soft, nontender, nondistended. Extremities: No lower extremity edema. Psych: Alert and oriented. Urinary Catheter: No Vascular Central Line Catheter: No A/P Problem List: (1) Gastric adenocarcinoma ICD Code: C16.9 Status: Chronic (2) Constipation ICD Code: K59.00 Status: Acute (3) Abdominal pain ICD Code: R10.9 Status: Acute Assessment and Plan 1. Abdominal pain: Much improved today. Appreciate GI recommendations. GI is considering EGD. Continue PPI. Tolerating clear liquid diet. 2. Hernia involving the colon: Surgery consult pending. 3. Constipation: Improved following enema. 4. Gastric adenocarcinoma: Appreciate management by oncology. 5. Hypokalemia: 6. COPD: Not in acute exacerbation. Patient continues to smoke one half pack per day. He was counseled to quit. Continue bronchodilators. Oxygen as needed. Discussed with Dr. Dos Santos. Discharge Planning When cleared by GI, oncology, surgery. Reynaldo Avila MD Aug 30, 2016 08:05
[2016-08-30 08:10] VITALS: BP 98/68; PULSE 82; RESP 18; TEMP 97.9; O2SAT 94
--- NOTE | 2016-08-30 08:10 | MB ---
cc: ELOISE CHEN M.D. DATE OF CONSULTATION 08/29/2016 REASON FOR CONSULTATION "Hernia, obstruction." HISTORY OF PRESENT ILLNESS Mr. Mario is an unfortunate 66-year-old gentleman with metastatic gastric cancer. He has been followed by Dr. Dos Santos as an outpatient. Apparently he has metastatic disease and is not a surgical candidate. The patient has been followed on an outpatient basis and apparently recently it was recommended he come in for failure to thrive and malnutrition but he declined. He presented to the emergency department today complaining of a to 3-month history of epigastric pain. The patient states that he has severe pain whenever he tries to eat. He states as soon as he eats, he gets the pain. He stated it has been there for approximately three months. He has been getting radiation and chemo and this has been wearing him down. He describes the pain in the epigastric area as 8/10. He has had some intermittent nausea and vomiting. He has intermittent constipation. He was seen and evaluated and admitted to the medical service for evaluation. Apparently the patient had a CAT scan of the abdomen and pelvis which showed an incidental finding of the patient's transverse colon above the stomach and there was a question of a possible hernia. However, review of the patient's previous CAT scan back on 04/23/2016 shows this exact findings. This was reviewed with Dr. Lomeli and he confirmed that this displacement of the patient's transverse colon had been on the previous image. Surgical consultation was requested for evaluation of this imaging abnormality. PAST MEDICAL HISTORY 1. Metastatic gastric cancer. 2. History of COPD. PAST SURGICAL HISTORY The patient has had an Ldwvhy-V-Sxxy placed. MEDICATIONS Please see the patient's EMR and he takes a large amount of narcotic pain medicine for his chronic pain. He also takes some inhalers for some breathing disorders. ALLERGIES No known drug allergies. SOCIAL HISTORY He is a smoker, continues to smoke and drink alcohol on a daily basis. FAMILY HISTORY Remarkable for lung cancer. REVIEW OF SYSTEMS Please see HPI. PHYSICAL EXAMINATION VITAL SIGNS: Temperature is 98, pulse is 70, blood pressure 113/60, respiratory rate 20. GENERAL: A thin, chronically ill-appearing gentleman sitting in the emergency department watching television, who appears in no distress whatsoever. HEENT: Sclerae are white. Oropharynx clear and moist. NECK: Supple. No masses. LUNGS: Clear to auscultation bilaterally. HEART: S1, S2. No murmur. ABDOMEN: Soft, nontender, nondistended. Active bowel sounds are noted. There is no palpable hernia that I can appreciate. EXTREMITIES: Free range of motion x 4. NEUROLOGICAL: Alert, oriented x 3. LABORATORY FINDINGS White blood cell count 11, hemoglobin 13, platelet count is 302. Her electrolytes are all within normal limits. IMAGING STUDIES CT scan obtained on 04/23/2016 and 08/29/2016 are very similar in appearance with a transverse colon up above the stomach on the imaging. Of note, Dr. Lomeli as interpreted the CT done today as no evidence of obstruction. I did review this imaging with him by phone and he confirmed that the appearance of the colon was identical to as it was back on the previous CT. He has recommended a sagittal reconstruction for further evaluation of this. IMPRESSION 1. Metastatic gastric cancer. 2. Chronic abdominal pain requiring large dose narcotics. 3. Incidental finding of previously noted, elevated transverse colon of undetermined significance. PLAN At this point I would not recommend a surgical intervention. I did not believe that this CT imaging abnormality is the source of the patient's abdominal pain as he states he gets the pain immediately upon eating. I would recommend further evaluation by gastroenterology with consideration of an EGD to rule out a possible ulcer which seems more likely in light of the patient's clinical diagnosis and current chemotherapy and radiation. We will follow up the patient tomorrow and reevaluate the sagittal CT scan when it comes available. MD JUAN Lopez/KARRI /8:54 PM /7:53 AM
[2016-08-30] MEDS ORDERED: POTASSIUM CHLORIDE 10 MEQ CONTROLLED RELEASE TAB PO ONE (08:15)
[2016-08-30] MEDS: MORPHINE SULFATE 4 MG/ML INJ IV PRN ×2 (11:15→16:18)
[2016-08-30 11:27] VITALS: BP 116/72; PULSE 84; RESP 18; TEMP 98.1; O2SAT 94
--- NOTE | 2016-08-30 13:26 | HHI.GIFU ---
Subjective Remarks Resting in bed. States his pain is well controlled at this time, but that he just had his pain medicine. States he continues to have significant constant epigastric pain that is aggravated by any by mouth intakeliquids or solids. He had a good bowel movement last night. No vomiting (Ariadne Meyer ) Objective Vitals I&O Vital Signs Date Time Temp Pulse Resp B/P Pulse Ox O2 Delivery O2 Flow Rate FiO2 08/30/16 11:27 98.1 84 18 116/72 94 08/30/16 08:10 97.9 82 18 98/68 94 08/30/16 03:59 97.3 79 12 106/66 94 08/29/16 23:42 97.4 77 20 92/57 93 08/29/16 20:47 97.0 76 16 113/66 95 08/29/16 16:15 97.8 74 18 120/68 96 08/29/16 14:28 93 Nasal Cannula 2.00 I/O 08/29/16 08/29/16 08/29/16 08/30/16 08/30/16 08/30/16 07:00 15:00 23:00 07:00 15:00 23:00 Intake Total 1489 ml 1296 ml Output Total 550 ml 650 ml Balance 939 ml 646 ml Intake Oral 240 ml 360 ml IV Total 1249 ml 936 ml Output Urine Total 550 ml 650 ml # Voids 3 6 # Bowel Movements 3 Laboratory Laboratory Tests Test 08/30/16 04:09 White Blood Count 6.2 Red Blood Count 3.88 Hemoglobin 11.7 Hematocrit 34.3 Mean Corpuscular Volume 88.4 Mean Corpuscular Hemoglobin 30.1 Mean Corpuscular Hemoglobin 34.0 Concent Red Cell Distribution Width 17.6 Platelet Count 245 Mean Platelet Volume 8.2 Sodium Level 134 Potassium Level 3.2 Chloride Level 99 Carbon Dioxide Level 28.2 Anion Gap 7 Blood Urea Nitrogen 3 Creatinine 0.30 Estimat Glomerular Filtration 300 Rate Random Glucose 117 Calcium Level 7.9 Magnesium Level 1.6 Imaging Last Impressions Chest CT 08/29/16 0000 Signed Impressions: Service Date/Time: Monday, August 29, 2016 20:08 - CONCLUSION: No pulmonary nodules are seen. The lungs are hyperinflated. Bharath Franklin MD Abdomen/Pelvis CT 08/28/16 0000 Signed Impressions: Service Date/Time: Sunday, August 28, 2016 19:11 - CONCLUSION: 1. Stool in the proximal colon to the level of the splenic flexure. 2. There is a loop of the mid transverse colon which actually extends cephalad anterior to the stomach and is positioned just below the base of the heart. This could represent an early pericardial hernia with a loop of bowel just at the base of the hernia sac. There is no obstruction. Sagittal reconstructions of the existing CT data may be useful for further characterization. 3. Horseshoe kidney. 4. Atrophic changes of the pancreas Chase Lomeli MD Physical Exam HEENT:Normocephalic; atraumatic; no jaundice. Throat is clear. NECK: Neck is supple, no JVD, no lymphadenopathy. CHEST: CTA CARDIAC: RRR ABDOMEN: Soft, nondistended, moderate significant epigastric discomfort; no hepatosplenomegaly; bowel sounds are present in all four quadrants. EXTREMITIES: No clubbing, cyanosis, or edema. SKIN: Normal; no rash; no jaundice. GLAZE CARRIER: No focal deficits; alert and oriented times three. (Ariadne MeyerP) Assessment and Plan Plan ASSESSMENT: - Abdominal pain in patient with known metastatic gastric cancer. Abdomen/ Pelvis CT (08/28/16)------> 1. Stool in the proximal colon to the level of the splenic flexure. 2. There is a loop of the mid transverse colon which actually extends cephalad anterior to the stomach and is positioned just below the base of the heart. This could represent an early pericardial hernia with a loop of bowel just at the base of the hernia sac. There is no obstruction. Sagittal reconstructions of the existing CT data may be useful for further characterization. 3. Horseshoe kidney. 4. Atrophic changes of the pancreas. Improved. But still having constant epigastric pain aggravated by any po intake after pain meds wear off. S/P GS evaluation for colonic hernia- no surgical intervention, recommends endoscopic evaluation. - Constipation. Status post soapsuds enema and Relistor (08/29/16), good results. +BM - Locally advanced nonresectable high grade gastric adenocarcinoma. Treated with concurrent chemoradiotherapy and completed tx in July 2016. PLAN: - Plan for egd in am - Obtain consents - NPO after MN - Cont. PPI - Hold Lovenox after midnight - Monitor labs - Supportive care - Further recommendations to follow on results of above - Patient seen and examined by Dr. Alejandra and myself and this note is written on her behalf (Ariadne Meyer) Physician Comments seen, examined agree with above (Serena Alejandra MD) Ariadne Meyer Aug 30, 2016 13:26 Serena Alejandra MD Aug 30, 2016 18:57
[2016-08-30 13:50] VITALS: O2SAT 94
[2016-08-30 16:03] VITALS: BP 122/71; PULSE 83; RESP 20; TEMP 98.2; O2SAT 95
[2016-08-30] MEDS: PANTOPRAZOLE SODIUM 40 MG VIAL IV PUSH SCH (16:17)
[2016-08-30] MEDS: ENOXAPARIN SODIUM 30 MG/0.3 ML SYRINGE SQ SCH (16:18)
[2016-08-30 19:55] VITALS: BP 113/62; RESP 18; TEMP 98.7; O2SAT 97
[2016-08-31 00:39] VITALS: BP 121/67; PULSE 67; RESP 18; TEMP 98.9; O2SAT 97
[2016-08-31 04:00] VITALS: BP 131/68; PULSE 67; RESP 18; TEMP 98.7; O2SAT 94
[2016-08-31] MEDS: MORPHINE SULFATE 4 MG/ML INJ IV PRN ×2 (05:01→08:05)
[2016-08-31] MEDS: POTASSIUM CHLORIDE INJ 30 MEQ in DEXT 5%-NACL 0.9% 1000 ML INJ 1,000 ML IV SCH (05:02)
[2016-08-31 08:00] VITALS: BP 131/80; PULSE 77; RESP 18; TEMP 96.3; O2SAT 94
[2016-08-31] MEDS: TIOTROPIUM BROMIDE 18 MCG INH INH SCH (08:03)
[2016-08-31] MEDS: BUDESONIDE-FORMOTEROL 160/4.5 MCG INHALER INH SCH (08:03)
[2016-08-31] MEDS: MULTIVITAMIN TAB PO SCH (08:04)
[2016-08-31] MEDS: SODIUM CHLORIDE 0.9% FLUSH 5 ML FLUSH FLUSH SCH (08:06)
[2016-08-31 08:51] VITALS: BP 131/80; PULSE 77; RESP 18; TEMP 96.3; O2SAT 94
[2016-08-31] MEDS ORDERED: PROPOFOL 200 MG/20 ML AMP IV ONE (09:16)
[2016-08-31] MEDS ORDERED: SUCRALFATE 1 GM/10 ML CUP PO ONE (09:45)
--- NOTE | 2016-08-31 11:15 | HHI.PR ---
Subjective Subjective Notes Resting in bed Still having abdominal pain Objective Vitals/I&O Vital Signs Date Time Temp Pulse Resp B/P Pulse Ox O2 Delivery O2 Flow Rate FiO2 08/31/16 09:41 79 18 119/76 95 08/31/16 09:31 97.4 08/30/16 13:50 Nasal Cannula 2.00 Cardiovascular: Regular Lungs: Clear Abdomen: Other (thin abdomen; mildly tender ) Extremities: No edema A/P Assessment and Plan 66 year old male with metastatic gastric cancer here with abdominal pain -EGD today---- biopsy obtained---await results -Diet per GI -No acute surgical interventions planned at this time -Discussed with Dr. Chen I ATTEST AND CERTIFY THAT I PERSONALLY WENT IN THE PATIENT'S ROOM AND EXAMINED THEM. I REVIEWED THE EMR WITH THE MECHANICAL COMMISSIONING ENGINEER AND ADVISED HER ON THE CARE PLAN. SHE DOCUMENTED THE VISIT AND ENTERED THE ORDERS IN THE EMR UNDER MY DIRECTION. ELOISE CHEN MD [facility] Mary Baker Aug 31, 2016 11:15 Eloise Chen MD Sep 08, 2016 11:43
[2016-08-31 12:16] VITALS: BP 145/75; PULSE 83; RESP 18; TEMP 97.6; O2SAT 95
--- NOTE | 2016-08-31 12:21 | HHI.PR ---
Subjective Remarks Follow up for abdominal pain with gastric adenocarcinoma. The patient is seen s/ p EGD which showed esophagitis. The patient states his pain is fairly well controlled currently. He has not yet tried clear liquids. Denies any nausea/ vomiting. Has not had a BM since his enema. Denies fevers or chills. He wants to to go home. Objective Vitals Vital Signs Date Time Temp Pulse Resp B/P Pulse Ox O2 Delivery O2 Flow Rate FiO2 08/31/16 09:41 79 18 119/76 95 08/31/16 09:36 82 16 112/76 98 08/31/16 09:31 97.4 83 16 115/79 100 08/31/16 08:51 96.3 77 18 131/80 94 08/31/16 08:00 96.3 77 18 131/80 94 08/31/16 05:27 16 08/31/16 04:00 98.7 67 18 131/68 94 08/31/16 00:39 98.9 67 18 121/67 97 08/30/16 19:55 98.7 18 113/62 97 08/30/16 16:03 98.2 83 20 122/71 95 08/30/16 13:50 94 Nasal Cannula 2.00 I/O 08/30/16 08/30/16 08/30/16 08/31/16 08/31/16 08/31/16 07:00 15:00 23:00 07:00 15:00 23:00 Intake Total 1296 ml 753 ml 450 ml Output Total 650 ml 400 ml 500 ml Balance 646 ml 753 ml -400 ml -500 ml 450 ml Intake Oral 360 ml IV Total 936 ml 753 ml 450 ml Output Urine Total 650 ml 400 ml 500 ml Result Diagram: 08/30/16 0409 08/30/16 0409 Imaging Last Impressions Chest CT 08/29/16 0000 Signed Impressions: Service Date/Time: Monday, August 29, 2016 20:08 - CONCLUSION: No pulmonary nodules are seen. The lungs are hyperinflated. Bharath Franklin MD Abdomen/Pelvis CT 08/28/16 0000 Signed Impressions: Service Date/Time: Sunday, August 28, 2016 19:11 - CONCLUSION: 1. Stool in the proximal colon to the level of the splenic flexure. 2. There is a loop of the mid transverse colon which actually extends cephalad anterior to the stomach and is positioned just below the base of the heart. This could represent an early pericardial hernia with a loop of bowel just at the base of the hernia sac. There is no obstruction. Sagittal reconstructions of the existing CT data may be useful for further characterization. 3. Horseshoe kidney. 4. Atrophic changes of the pancreas Chase Lomeli MD Objective Remarks GENERAL: Thin male patient in NAD. SKIN: Warm and dry. No rash. HEAD: Normocephalic. Atraumatic. EYES: Pupils equal and round. No scleral icterus. No injection or drainage. ENT: No nasal bleeding or discharge. Mucous membranes pink and moist. NECK: Supple. Trachea midline. CARDIOVASCULAR: Regular rate and rhythm. S1, S2 noted. No murmur appreciated. RESPIRATORY: No accessory muscle use. Clear to auscultation. Breath sounds equal bilaterally. GASTROINTESTINAL: Abdomen soft, non-tender, nondistended. Normoactive bowel sounds x4. MUSCULOSKELETAL: No obvious deformities. Extremities without clubbing, cyanosis , or edema. NEUROLOGICAL: Awake and alert. No obvious cranial nerve deficits. Motor grossly within normal limits. Normal speech. Medications and IVs Current Medications Medications (Trade) Dose Ordered Sig/Davina Route Start Time Stop Time Status Last Admin (KCl Inj/D5W-NS 1000 ml Inj) 1,015 ml @ 100 mls/hr Q10H9M IV 08/28/16 16:00 08/31/16 05:02 (Protonix Inj) 40 mg Q24H IV PUSH 08/28/16 17:00 08/30/16 16:17 (Symbicort 160-4.5 Inh) 1 puff Q12HR INH 08/28/16 21:00 08/31/16 08:03 (Duragesic 50 Mcg Patch.72 Hr) 1 patch Q72H T-DERMAL 08/28/16 18:00 08/28/16 19:19 (Theragran) 1 tab DAILY PO 08/29/16 09:00 08/31/16 08:04 (Spiriva Inh) 18 mcg DAILY INH 08/29/16 09:00 08/31/16 08:03 (NS Flush) 2 ml UNSCH PRN FLUSH 08/28/16 16:30 (NS Flush) 2 ml BID FLUSH 08/28/16 21:00 08/31/16 08:06 (Tylenol) 650 mg Q4H PRN PO 08/28/16 16:30 (Zofran Inj) 4 mg Q6H PRN IVP 08/28/16 16:30 08/30/16 11:14 (Dulcolax Supp) 10 mg DAILY PRN NV 08/28/16 16:30 (Lovenox Inj) 30 mg Q24H SQ 08/28/16 17:00 08/30/16 16:18 (Tylenol) 650 mg Q6H PRN PO 08/28/16 16:30 (Morphine Inj) 2 mg Q3H PRN IV 08/28/16 16:30 08/31/16 08:05 (Morphine Inj) 4 mg Q3H PRN IV 08/28/16 16:30 (Morphine Inj) 4 mg Q3H PRN IV 08/28/16 16:30 08/28/16 20:24 (Narcan Inj) 0.4 mg UNSCH PRN IV 08/28/16 16:30 Miscellaneous Information 1 Q3D TD 08/31/16 18:00 (Relistor Inj) 12 mg DAILY SQ 09/01/16 09:00 Urinary Catheter: No Vascular Central Line Catheter: No A/P Problem List: (1) Gastric adenocarcinoma ICD Code: C16.9 Status: Chronic (2) Constipation ICD Code: K59.00 Status: Acute (3) Abdominal pain ICD Code: R10.9 Status: Acute Assessment and Plan 66-year-old male with: Abdominal pain with known Gastric Adenocarcinoma: CT abd/pelvis showed stool in proximal colon, loop of mid transverse colon which extends anterior to the stomach positioned just below the base of heart, could represent early pericardial hernia with loop of bowel just at the base of the hernia sac; no obstruction. -Continue PPI, IVF -Consult GI, patient underwent EGD today 08/31, showed esophagitis, mass in gastric body, duodenal nodule; biopsies taken -GI ordered Carafate and trial of IV Relistor -Continue on clear liquid diet per GI Hernia involving the colon: General surgery consulted, no surgical intervention recommended, agrees with GI eval as above. Constipation: Improved following enema. Gastric adenocarcinoma: Appreciate management by oncology. Hypokalemia: K 3.2. Given po KCl replacement. Mag 1.6. COPD: Not in acute exacerbation. Patient continues to smoke one half pack per day. He was counseled to quit. Continue bronchodilators. Oxygen as needed. DVT Prophylaxis: Lovenox Written by Vivian Landry, acting as scribe for Dr. Dye on 08/31/16 at 12:46. The documentation accurately reflects the work performed [id number] by me Dr. Dye on 08/31/16 at 1246 Vivian Landry PA-C Aug 31, 2016 12:21 Claudette yDe MD Aug 31, 2016 12:34
[2016-08-31] MEDS ORDERED: CARA1SUS3 PO (12:52)
[2016-08-31] MEDS ORDERED: PROT40TA PO (12:52)
--- NOTE | 2016-08-31 12:55 | HHI.DCPOC ---
Discharge Care Plan Diagnosis: (1) Gastric adenocarcinoma (2) Abdominal pain (3) Constipation (4) Esophagitis Goals to Promote Your Health * To prevent worsening of your condition and complications * To maintain your health at the optimal level Directions to Meet Your Goals Take your medications as prescribed Follow your dietary instruction Follow activity as directed Keep your appointments as scheduled Take your immunizations and boosters as scheduled If your symptoms worsen call your PCP, if no PCP go to Urgent Care Center or Emergency Room Smoking is Dangerous to Your Health. Avoid second hand smoke Call the 24-hour hour crisis hotline for domestic abuse at Vivian Landry PA-C Aug 31, 2016 12:54 Claudette Dye MD Aug 31, 2016 23:30
--- NOTE | 2016-08-31 16:07 | HHI.DS ---
cc: Dr. Burton Brown Discharge Summary Admission Date Aug 28, 2016 at 14:55 Discharge Date: Aug 31, 2016 Admitting Diagnosis failure to thrive, hypotension, intractable nausea and vomiting (1) Abdominal pain ICD Code: R10.9 Diagnosis: Principal (2) Gastric adenocarcinoma ICD Code: C16.9 Diagnosis: Principal (3) Constipation ICD Code: K59.00 Diagnosis: Secondary (4) Esophagitis ICD Code: K20.9 Diagnosis: Secondary Procedures EGD 08/31 - showed esophagitis, mass in gastric body, duodenal nodule; biopsies taken Brief History - From Admission The patient is a 66-year-old male recently diagnosed with gastric adenocarcinoma who is presenting to the hospital with severe abdominal pain, nausea and constipation. The patient says he was diagnosed with gastric cancer about 2-1/2 months ago. He was having epigastric pain and thought it might of been an ulcer. He had imaging and went to the hospital and he was diagnosed. He says he has had radiation treatments and 2 chemotherapy treatments but those were put on hold because of insurance problems. The patient says he now has new oncologist who he met a couple weeks ago. The patient has had increasing abdominal pain in the epigastric area. He says the pain is an 8 out of 10 in severity. He has been having nausea and vomited the other day. He has not had a bowel movement in 5-7 days. He says he has not passing any gas. He has been taking pain medications at home. He tried taking Dulcolax and a gas pill. He says it has been a few days since he has eaten something. He says that when he urinates he has dribbling and some of having a full stream and this is new. CBC/BMP: 08/30/16 0409 08/30/16 0409 Significant Findings Laboratory Tests Test 08/29/16 08/30/16 06:34 04:09 Blood Urea Nitrogen 6 MG/DL (7-18) 3 MG/DL (7-18) Creatinine 0.41 MG/DL 0.30 MG/DL (0.60-1.30) (0.60-1.30) Random Glucose 126 MG/DL 117 MG/DL (74-106) (74-106) Calcium Level 8.0 MG/DL 7.9 MG/DL (8.5-10.1) (8.5-10.1) Red Blood Count 3.88 MIL/MM3 (4.50-5.90) Hemoglobin 11.7 GM/DL (13.0-17.0) Hematocrit 34.3 % (39.0-51.0) Red Cell Distribution Width 17.6 % (11.6-17.2) Sodium Level 134 MEQ/L (136-145) Potassium Level 3.2 MEQ/L (3.5-5.1) Imaging Last Impressions Chest CT 08/29/16 0000 Signed Impressions: Service Date/Time: Monday, August 29, 2016 20:08 - CONCLUSION: No pulmonary nodules are seen. The lungs are hyperinflated. Bharath Franklin MD Abdomen/Pelvis CT 08/28/16 0000 Signed Impressions: Service Date/Time: Sunday, August 28, 2016 19:11 - CONCLUSION: 1. Stool in the proximal colon to the level of the splenic flexure. 2. There is a loop of the mid transverse colon which actually extends cephalad anterior to the stomach and is positioned just below the base of the heart. This could represent an early pericardial hernia with a loop of bowel just at the base of the hernia sac. There is no obstruction. Sagittal reconstructions of the existing CT data may be useful for further characterization. 3. Horseshoe kidney. 4. Atrophic changes of the pancreas Chase Lomeli MD PE at Discharge GENERAL: Thin male patient in NAD. SKIN: Warm and dry. No rash. HEAD: Normocephalic. Atraumatic. EYES: Pupils equal and round. No scleral icterus. No injection or drainage. ENT: No nasal bleeding or discharge. Mucous membranes pink and moist. NECK: Supple. Trachea midline. CARDIOVASCULAR: Regular rate and rhythm. S1, S2 noted. No murmur appreciated. RESPIRATORY: No accessory muscle use. Clear to auscultation. Breath sounds equal bilaterally. GASTROINTESTINAL: Abdomen soft, non-tender, nondistended. Normoactive bowel sounds x4. MUSCULOSKELETAL: No obvious deformities. Extremities without clubbing, cyanosis , or edema. NEUROLOGICAL: Awake and alert. No obvious cranial nerve deficits. Motor grossly within normal limits. Normal speech. Pt update on day of discharge The patient is tolerating his meal s/p EGD. He wants to go home. Hospital Course 66-year-old male with: Abdominal pain with known Gastric Adenocarcinoma: CT abd/pelvis showed stool in proximal colon, loop of mid transverse colon which extends anterior to the stomach positioned just below the base of heart, could represent early pericardial hernia with loop of bowel just at the base of the hernia sac; no obstruction. The patient was given PPI, IVF. GI was consulted, patient underwent EGD today 08/31, showed esophagitis, mass in gastric body, duodenal nodule; biopsies taken, pathology pending at discharge. GI ordered Carafate and trial of IV Relistor. He was placed on full liquid diet and patient tolerated well. His abdominal pain improved. He is requesting discharge. GI cleared for discharge home. Hernia involving the colon: Seen on Imaging as above. General surgery consulted , no surgical intervention recommended, agrees with GI eval as above. Constipation: Improved following enema. Gastric adenocarcinoma: Appreciate management by oncology. Outpatient f/up. Hypokalemia: K 3.2. Given po KCl replacement. Mag 1.6. COPD/Tobacco Use: Not in acute exacerbation. Patient continues to smoke one half pack per day. He was counseled to quit. Continue bronchodilators. Oxygen as needed. DVT Prophylaxis: Lovenox Written by Vivian Landry, acting as scribe for Dr. Dye on 08/31/16 at 12:46. The documentation accurately reflects the work performed [id number] by me Dr. Dye on 08/31/16 at 12:46. Pt Condition on Discharge: Stable Discharge Disposition: Discharge Home Discharge Time: > 30 minutes Discharge Instructions DIET: Follow Instructions for: Soft Diet, Full Liquid Diet Activities you can perform: Regular-No Restrictions Follow up Referrals: Gastroenterology - 1 Week with Serena Alejandra MD Oncology - 1 Week PCP Follow-up - 2-3 Days with Burton Brown MD New Medications: Pantoprazole (Protonix) 40 Mg Tab 40 MG PO DAILY Reflux #30 Ref 0 TAB Sucralfate Liq (Carafate Liq) 1 Gm/10 Ml Susp 1 GM PO TID on empty stomach esophagitis #100 Ref 0 ML Continued Medications: Albuterol 6.7 GM Inh (Proventil Hfa 6.7 GM Inh) 90 Mcg/Act Aer 2 PUFF INH Q4-6H PRN SHORTNESS OF BREATH #1 Ref 0 INHALER Atenolol (Atenolol) 25 Mg Tab 25 MG PO DAILY Blood Pressure Management #30 TAB Budesonide-Formoterol Inh (Symbicort Inh) 160-4.5 Mcg/Act Aero 1 PUFF INH Q12HR #1 Ref 0 INHALER Fentanyl Patch 72 HR (Fentanyl Patch 72 HR) 50 Mcg/Hr Patch 50 MCG T-DERMAL Q72H Remove old patch when new one placed. Pain Management #10 Ref 0 PATCH Multiple Vitamin (One Daily) 1 Tab 1 TAB PO DAILY Nutritional Supplement Ref 0 TAB Ondansetron (Ondansetron) 8 Mg Tab 8 MG PO TID Nausea/Vomiting #12 Ref 1 TAB Oxycodone Liq (Oxycodone Liq) 20 Mg/Ml Conc 5 MG PO Q6H Pain Management Ref 0 ML Tiotropium Inh (Spiriva Handihaler) 18 Mcg Cap 18 MCG INH DAILY 1 capsule = 18 mcg COPD #30 Ref 0 CAP Discontinued Medications: Omeprazole (Omeprazole) 20 Mg Tab 20 MG PO DAILY #30 Ref 0 TAB Additional Information Written by Vivian Landry, acting as scribe for Dr. Dye on 08/31/16 at 12:46. The documentation accurately reflects the work performed [id number] by me Dr. Dye on 08/31/16 at 12:46. Vivian Landry PA-C Aug 31, 2016 16:06 Claudette Dye MD Aug 31, 2016 23:32
[2016-08-31] MEDS ORDERED: REMOVE OLD DURAGESIC (FENTANYL) PATCH TD SCH (18:00)
[2016-09-01] MEDS ORDERED: METHYLNALTREXONE BROMIDE 12 MG/0.6 ML VIAL SQ SCH (09:00)
== END 2016-08-31 17:05 | disposition home or self-care (01) ==
LOC: NEPA 12:29 → NEDA 14:55 → NEPFCDU 20:04
PROVIDERS: ADMIT Hospitalist; ATTEND Hospitalist
DX: C16.9 Malignant neoplasm of stomach, unspecified (principal); G89.3 Neoplasm related pain (acute) (chronic); R10.9 Unspecified abdominal pain; T40.2X5A Adverse effect of other opioids, initial encounter; R62.7 Adult failure to thrive; K59.03 Drug induced constipation; K21.0 Gastro-esophageal reflux disease with esophagitis; E86.0 Dehydration; E87.6 Hypokalemia; E46 Unspecified protein-calorie malnutrition; Q63.1 Lobulated, fused and horseshoe kidney; J44.9 Chronic obstructive pulmonary disease, unspecified; I10 Essential (primary) hypertension; E78.00 Pure hypercholesterolemia, unspecified; F17.210 Nicotine dependence, cigarettes, uncomplicated
CPT/HCPCS: 00740; 43239; 71260; 74177; 80048; 80053; 81001; 83605; 83690; 83735; 84100; 85025; 85027; 85610; 85730; 88305; 88312; 96361; 96374; 96375; 97163; 97164; 99285; C9113; G0378; G8987; G8988; J1642; J1650; J2212; J2270; J2405; J3475; J3480; J7030; J7042; Q9963; Q9967

== ENCOUNTER 2016-09-03 16:43 | Emergency (ER) | payer OTHER ==
[~2016-09-03] VITALS: Ht 177.8 cm; Wt 50.0 kg
[~2016-09-03 16:43] MED LIST changes: +ALBU6.7H INH; -ATEN-102 PO; +ATEN25TA PO; +CARA1SUS3 PO; +FENT50DI T-DERMAL; +MULT-207 PO; +ONDA1TAB17 PO; +OXYC1CON3 PO; -POLY119S PO; -PRAV40TA2 PO; +PROT40TA PO; +SPIRCAP INH; +SYMB160A INH
[2016-09-03 16:44] VITALS: BP 109/67; PULSE 92; RESP 22; TEMP 97.9; O2SAT 95
[2016-09-03] MEDS ORDERED: SODIUM CHLOR 0.9% 1000 ML INJ 1,000 ML IV SCH (17:19)
[2016-09-03 17:27] VITALS: O2SAT 95
--- NOTE | 2016-09-03 17:28 | PD ---
HPI Chief Complaint: Abdominal Pain Time Seen by Provider: 17:05 Travel History International Travel<30 days: No Contact w/Intl Traveler<30days: No Traveled to known affect area: No History of Present Illness HPI 66-year-old male with history of gastric cancer, status post chemotherapy and radiation, now following with Dr. Benz, presents to the ER today because he states that he has had poor by mouth intake, vomiting, and having abdominal pains. He denies any fevers or any other issues. He states his abdominal pain as an 8 out 10 and he has been having trouble controlling his pain at home. Modifying Factors: None Associated Signs & Symptoms: Nausea, vomiting, abdominal pain poorly controlled with pain meds at home Risk Factors: Gastric cancer PFSH Past Medical History Cancer: Yes (Gastric) Cardiovascular Problems: Yes Chemotherapy: Yes COPD: Yes Endocrine: No Gastrointestinal Disorders: Yes (Gastric cancer) Genitourinary: No Hypertension: Yes Implanted Vascular Access Dvce: Yes Musculoskeletal: No Neurologic: No Psychiatric: No Reproductive: No Respiratory: Yes Radiation Therapy: Yes Tetanus Vaccination: Unknown Influenza Vaccination: Yes Past Surgical History Surgical History: No Previous Surgery Body Medical Devices: Right subclavian port Other Surgery: Yes Social History Alcohol Use: No (quit 3 months. ) Tobacco Use: Yes (2 PPD) Substance Use: No Allergies-Medications (Allergen,Severity, Reaction): Coded Allergies: No Known Allergies (Unverified , 09/03/16) Reported Meds & Prescriptions Reported Meds & Active Scripts Active Protonix (Pantoprazole Sodium) 40 Mg Tab 40 Mg PO DAILY Carafate Liq (Sucralfate) 1 Gm/10 Ml Susp 1 Gm PO TID on empty stomach Reported Fentanyl Patch 72 HR (Fentanyl) 50 Mcg/Hr Patch 50 Mcg T-DERMAL Q72H Remove old patch when new one placed. Symbicort Inh (Budesonide/Formoterol Fumarate) 160-4.5 Mcg/Act Aero 1 Puff INH Q12HR Proventil Hfa 6.7 GM Inh (Albuterol Sulfate) 90 Mcg/Act Aer 2 Puff INH Q4-6H PRN Atenolol 25 Mg Tab 25 Mg PO DAILY One Daily (Multiple Vitamin) 1 Tab 1 Tab PO DAILY Spiriva Handihaler (Tiotropium Inh) 18 Mcg Cap 18 Mcg INH DAILY 1 capsule = 18 mcg Ondansetron (Ondansetron HCl) 8 Mg Tab 8 Mg PO TID Oxycodone Liq (Oxycodone HCl) 20 Mg/Ml Conc 5 Mg PO Q6H Review of Systems Except as stated in HPI: all other systems reviewed are Neg Physical Exam Narrative GENERAL: Thin, well-developed elderly white male patient in no acute distress. SKIN: Warm and dry. HEAD: Normocephalic. EYES: No scleral icterus. No injection or drainage. NECK: Supple, trachea midline. CARDIOVASCULAR: Regular rate and rhythm without murmurs, gallops, or rubs. RESPIRATORY: Breath sounds equal bilaterally. No accessory muscle use. GASTROINTESTINAL: Abdomen soft, epigastric tenderness without guarding or rebound, nondistended. MUSCULOSKELETAL: No cyanosis, or edema. BACK: Nontender without obvious deformity. No CVA tenderness. Data Data Last Documented VS Vital Signs Date Time Temp Pulse Resp B/P Pulse Ox O2 Delivery O2 Flow Rate FiO2 09/03/16 18:15 18 09/03/16 17:47 82 145/84 96 09/03/16 17:27 Room Air 09/03/16 16:44 97.9 Orders Complete Blood Count With Diff (09/03/16 17:19) Comprehensive Metabolic Panel (09/03/16 17:19) Iv Access Insert/Monitor (09/03/16 17:19) Ecg Monitoring (09/03/16 17:19) Oximetry (09/03/16 17:19) Ondansetron Inj (Zofran Inj) (09/03/16 17:30) Sodium Chlor 0.9% 1000 Ml Inj (Ns 1000 M (09/03/16 17:19) Sodium Chloride 0.9% Flush (Ns Flush) (09/03/16 17:30) Hydromorphone Pf Inj (Dilaudid Pf Inj) (09/03/16 17:30) Labs Laboratory Tests Test 09/03/16 17:20 White Blood Count 9.9 TH/MM3 Red Blood Count 4.76 MIL/MM3 Hemoglobin 14.5 GM/DL Hematocrit 42.9 % Mean Corpuscular Volume 90.1 FL Mean Corpuscular Hemoglobin 30.4 PG Mean Corpuscular Hemoglobin 33.8 % Concent Red Cell Distribution Width 17.3 % Platelet Count 309 TH/MM3 Mean Platelet Volume 8.4 FL Neutrophils (%) (Auto) 76.5 % Lymphocytes (%) (Auto) 13.6 % Monocytes (%) (Auto) 9.2 % Eosinophils (%) (Auto) 0.3 % Basophils (%) (Auto) 0.4 % Neutrophils # (Auto) 7.6 TH/MM3 Lymphocytes # (Auto) 1.3 TH/MM3 Monocytes # (Auto) 0.9 TH/MM3 Eosinophils # (Auto) 0.0 TH/MM3 Basophils # (Auto) 0.0 TH/MM3 CBC Comment DIFF FINAL Differential Comment Sodium Level 134 MEQ/L Potassium Level 3.9 MEQ/L Chloride Level 94 MEQ/L Carbon Dioxide Level 27.5 MEQ/L Anion Gap 13 MEQ/L Blood Urea Nitrogen 17 MG/DL Creatinine 0.64 MG/DL Estimat Glomerular Filtration 125 ML/MIN Rate Random Glucose 155 MG/DL Calcium Level 9.5 MG/DL Total Bilirubin 0.8 MG/DL Aspartate Amino Transf 19 U/L (AST/SGOT) Alanine Aminotransferase 21 U/L (ALT/SGPT) Alkaline Phosphatase 95 U/L Total Protein 6.9 GM/DL Albumin 3.1 GM/DL [facility] Medical Decision Making Medical Screen Exam Complete: Yes Emergency Medical Condition: Yes Medical Record Reviewed: Yes Interpretation(s) Laboratory Tests Test 09/03/16 17:20 Red Cell Distribution Width 17.3 % (11.6-17.2) Neutrophils (%) (Auto) 76.5 % (16.0-70.0) Monocytes (%) (Auto) 9.2 % (0.0-8.0) Sodium Level 134 MEQ/L (136-145) Chloride Level 94 MEQ/L (98-107) Random Glucose 155 MG/DL (74-106) Albumin 3.1 GM/DL (3.4-5.0) Differential Diagnosis Epigastric abdominal pain, nausea, vomitingrule out dehydration versus metabolic issues versus sepsis Narrative Course Lab work did not indicate any significant metabolic issues or dehydration. IV fluids were given in the ER along with pain medications. On reevaluation at 6: 30, the patient is feeling improved, states that the pain medication helped a lot. At this point, it seems to be more pain control issue. I'm not suspecting new issues at this time. Patient apparently has been throwing up his pain medications. In addition, he states he was not aware that the Zofran is and ODT and he has been using it by mouth. My plan would be to release him with additional nausea medication. Continue pain medication as needed and fentanyl patches as previously prescribed. Follow-up with oncologist for further treatment and help with pain control. Return for any worsening in symptoms as necessary. The plan has been discussed with him and he states understanding. Diagnosis Primary Impression: Abdominal pain Additional Impression: Chronic pain Med/Other Pt SpecificInfo: Prescription(s) given Scripts Promethazine Supp (Phenergan Supp)25 Mg Supp25 Mg RECTAL Q6H PRN (NAUSEA OR VOMITING) #10 SUPP Ref 0 Prov:Homero Jensen MD 09/03/16 Disposition: 01 DISCHARGE HOME Condition: Stable Homero Jensen MD Sep 03, 2016 17:28
[2016-09-03] MEDS ORDERED: HYDROmorphone HCL PF 1 MG/ML VIAL IVS ONE (17:30)
[2016-09-03] MEDS ORDERED: ONDANSETRON HCL 4 MG/2 ML VIAL IVP ONE (17:30)
[2016-09-03] MEDS ORDERED: SODIUM CHLORIDE 0.9% FLUSH 5 ML FLUSH IVF PRN (17:30)
[2016-09-03 17:47] VITALS: BP 145/84; PULSE 82; RESP 22; O2SAT 96
[2016-09-03 17:58] LABS: AUTOMATED NEUTROPHIL # 7.6 TH/MM3 (1.8-7.7); BASOPHIL % 0.4 % (0.0-2.0); EOSINOPHIL % 0.3 % (0.0-4.0); HEMATOCRIT 42.9 % (39.0-51.0); HEMO FLAGS DIFF FINAL; LYMPH % 13.6 % (9.0-44.0); LYMPHOCYTE # 1.3 TH/MM3 (1.0-4.8); MEAN CELL VOLUME 90.1 FL (80.0-100.0); MEAN CORPUSCULAR HEMOGLOBIN 30.4 PG (27.0-34.0); MEAN CORPUSCULAR HGB CONC 33.8 % (32.0-36.0); MONO % 9.2 % (0.0-8.0); NEUT % 76.5 % (16.0-70.0); PLATELET COUNT 309 TH/MM3 (150-450); RED BLOOD COUNT 4.76 MIL/MM3 (4.50-5.90); RED CELL DISTRIBUTION WIDTH 17.3 % (11.6-17.2); WHITE BLOOD COUNT 9.9 TH/MM3 (4.0-11.0)
[2016-09-03 18:28] LABS: ALT (GPT) 21 U/L (12-78); ANION GAP 13 MEQ/L (5-15); AST (GOT) 19 U/L (15-37); BICARBONATE 27.5 MEQ/L (21.0-32.0); BLOOD UREA NITROGEN 17 MG/DL (7-18); CHLORIDE 94 MEQ/L (98-107); GLOMERULAR FILTRATION RATE 125 ML/MIN (>89); POTASSIUM 3.9 MEQ/L (3.5-5.1); SODIUM (NA) 134 MEQ/L (136-145)
[2016-09-03 18:30] LABS: ALKALINE PHOSPHATASE 95 U/L (45-117); TOTAL BILIRUBIN ADULT 0.8 MG/DL (0.2-1.0)
[2016-09-03] MEDS ORDERED: PROM1SUP7 RECTAL (18:41)
[2016-09-03 18:57] VITALS: BP 126/72; PULSE 86; RESP 22; O2SAT 96
== END 2016-09-03 18:59 | disposition home or self-care (01) ==
LOC: NEPC 16:43
DX: R10.9 Unspecified abdominal pain (principal); G89.29 Other chronic pain; R11.2 Nausea with vomiting, unspecified; J44.9 Chronic obstructive pulmonary disease, unspecified; I10 Essential (primary) hypertension; F17.210 Nicotine dependence, cigarettes, uncomplicated
CPT/HCPCS: 80053; 85025; 96361; 96374; 96375; 99284; J1170; J2405; J7030

== ENCOUNTER 2016-09-17 11:02 | Inpatient (IN) | payer OTHER, MEDICARE ==
[~2016-09-17] VITALS: Ht 177.8 cm; Wt 57.0 kg
[~2016-09-17 11:02] MED LIST changes: +PROM1SUP7 RECTAL
[2016-09-17] MEDS ORDERED: BUPIVACAINE/EPINEPHRINE 0.25% PF 30 ML VIAL ONE (11:39)
[2016-09-17] MEDS ORDERED: METOPROLOL TARTRATE 25 MG TAB PO PRN (11:45)
[2016-09-17] MEDS: SODIUM CHLORID 0.9% 500 ML IV SCH (11:45)
[2016-09-17] MEDS ORDERED: INSULIN HUMAN REGULAR 1,000 UNITS/10 ML VIAL SQ PRN (11:45)
[2016-09-17] MEDS ORDERED: ceFAZolin 2 GM PREMIX 50 ML IV SCH (11:45)
[2016-09-17] MEDS ORDERED: MIDAZOLAM HCL 2 MG/2 ML VIAL IV ONE (12:00)
[2016-09-17] MEDS ORDERED: ePHEDrine/NS 25 MG/5 ML SYR IV ONE (12:00)
[2016-09-17] MEDS ORDERED: LACTATED RINGER'S 1000 ML INJ 1,000 ML IV ONE (12:00)
[2016-09-17] MEDS ORDERED: fentaNYL CITRATE 250 MCG/5 ML AMP IV ONE (12:00)
[2016-09-17] MEDS ORDERED: PROPOFOL 200 MG/20 ML AMP IV ONE (12:00)
[2016-09-17] MEDS ORDERED: ONDANSETRON HCL 4 MG/2 ML VIAL IV PUSH ONE (12:00)
[2016-09-17] MEDS ORDERED: NEOSTIGMINE METHYLSULFATE 10 MG/10 ML VIAL IV PUSH ONE (12:00)
[2016-09-17] MEDS ORDERED: PHENYLEPH/NS 1000 MCG/10 ML SYR IV ONE (12:00)
[2016-09-17] MEDS: LACTATED RINGER'S 1000 ML IV SCH ×2 (12:15→18:58)
[2016-09-17 12:25] VITALS: BP 94/76; PULSE 105; RESP 20; TEMP 97.7; O2SAT 97
[2016-09-17] MEDS ORDERED: FAMOTIDINE 20 MG/2 ML VIAL IV PUSH ONE (13:33)
[2016-09-17] MEDS ORDERED: NALOXONE HCL 0.4 MG/ML AMP IV PRN (15:30)
[2016-09-17] MEDS ORDERED: diphenhydrAMINE HCL 50 MG/ML VIAL IV PRN (15:30)
[2016-09-17] MEDS ORDERED: Post-op Orders (for Pharmacy) MISC XX ONE (15:30)
[2016-09-17] MEDS ORDERED: ONDANSETRON HCL 4 MG/2 ML VIAL IV PRN (15:30)
[2016-09-17] MEDS ORDERED: SODIUM CHLORIDE 0.9% FLUSH 5 ML FLUSH IVF PRN (15:30)
[2016-09-17] MEDS ORDERED: PROMETHAZINE HCL 25 MG SUPP RECTAL PRN (15:30)
[2016-09-17] MEDS ORDERED: ALBUTEROL SULFATE 90 MCG/ACT HFA 8 GM INHALER INH PRN (15:30)
[2016-09-17] MEDS ORDERED: ACETAMINOPHEN/HYDROcodone 325 MG/5 MG TAB PO PRN (15:30)
[2016-09-17] MEDS ORDERED: *morphine SULFATE 8 MG/ML PERIprocedure ONLY ONE (15:58)
[2016-09-17] MEDS: ATENOLOL 25 MG TAB PO SCH (16:00)
[2016-09-17] MEDS: LACTATED RINGER'S 1000 ML INJ 1,000 ML IV SCH (16:00)
[2016-09-17] MEDS: MULTIVITAMIN TAB PO SCH (16:00)
[2016-09-17] MEDS: PCA - TOTAL MG MORPHINE DELIVERED PER SHIFT SCH ×2 (16:00→22:00)
--- NOTE | 2016-09-17 16:25 | EKG ---
Date Performed: 09/17/2016 Time Performed: 11:42:06 PTAGE: 66 years EKG: Sinus rhythm LOW QRS VOLTAGE IN EXTREMITY LEADS MINIMAL ST DEPRESSION Atrial abnormality. BORDERLINE ECG NO PREVIOUS TRACING DOCTOR: Armin Bruner Interpretating Date/Time 09/17/2016 16:25:10
[2016-09-17] MEDS: HYDROmorphone HCL PF 1 MG/ML VIAL IV PRN ×2 (16:45→19:00)
[2016-09-17] MEDS: KETOROLAC TROMETHAMINE 30 MG/ML (IVP) VIAL IVP PRN ×2 (17:00→21:34)
[2016-09-17] MEDS: REMOVE OLD DURAGESIC (FENTANYL) PATCH TD SCH (17:00)
[2016-09-17] MEDS: ONDANSETRON ODT 4 MG TAB PO SCH (18:53)
[2016-09-17] MEDS: fentaNYL 25 MCG/HR PATCH T-DERMAL SCH (18:54)
[2016-09-17] MEDS: PANTOPRAZOLE SOD 40 MG DELAYED RELEASE TAB PO SCH (18:56)
[2016-09-17 20:00] VITALS: BP 105/62; PULSE 80; RESP 22; TEMP 96.7; O2SAT 99
[2016-09-17] MEDS: ACETAMINOPHEN/HYDROcodone 325 MG/5 MG TAB PO PRN (20:02)
[2016-09-17] MEDS: BUDESONIDE-FORMOTEROL 160/4.5 MCG INHALER INH SCH (21:00)
[2016-09-17] MEDS: TIOTROPIUM BROMIDE 18 MCG INH INH SCH (21:00)
[2016-09-17 21:15] VITALS: O2SAT 99
[2016-09-17] MEDS: oxyCODONE HCL ORAL CONC 20 MG/ML SYRINGE PO SCH ×2 (21:33→23:00)
[2016-09-17] MEDS: SODIUM CHLORIDE 0.9% FLUSH 5 ML FLUSH IVF SCH (21:34)
[2016-09-18] VITALS (7 sets, daily range): BP systolic 97–110; BP diastolic 59–72; PULSE 72–84; RESP 17–22; TEMP 96–98.1; O2SAT 90–98
[2016-09-18] MEDS: LACTATED RINGER'S 1000 ML INJ 1,000 ML IV SCH ×3 (00:54→22:00)
[2016-09-18] MEDS: SODIUM CHLORID 0.9% 500 ML IV SCH (00:55)
[2016-09-18] MEDS: PCA - TOTAL MG MORPHINE DELIVERED PER SHIFT SCH ×3 (00:55→22:00)
[2016-09-18] MEDS: oxyCODONE HCL ORAL CONC 20 MG/ML SYRINGE PO SCH ×4 (04:37→22:27)
[2016-09-18] MEDS: HYDROmorphone HCL PF 1 MG/ML VIAL IV PRN ×2 (04:37→13:44)
[2016-09-18] MEDS: ATENOLOL 25 MG TAB PO SCH (08:17)
[2016-09-18] MEDS: PANTOPRAZOLE SOD 40 MG DELAYED RELEASE TAB PO SCH (08:19)
[2016-09-18] MEDS: MULTIVITAMIN TAB PO SCH (08:19)
[2016-09-18] MEDS: ONDANSETRON ODT 4 MG TAB PO SCH ×3 (08:19→16:15)
[2016-09-18] MEDS: SODIUM CHLORIDE 0.9% FLUSH 5 ML FLUSH IVF SCH ×2 (08:19→22:14)
[2016-09-18] MEDS: BUDESONIDE-FORMOTEROL 160/4.5 MCG INHALER INH SCH ×2 (08:21→21:00)
--- NOTE | 2016-09-18 10:03 | HHI.PR ---
Subjective Subjective Notes difficulty flushing j tube, afebrile pain controlled Objective Vitals/I&O Vital Signs Date Time Temp Pulse Resp B/P Pulse Ox O2 Delivery O2 Flow Rate FiO2 09/18/16 08:19 98 Nasal Cannula 2.00 09/18/16 08:00 96.0 74 17 108/65 Lungs: Upper airway course sound Abdomen: Other (incision c/d/i, j tube c/d/i) A/P Assessment and Plan POD 1 J tube PLAN Start tf 20cc per hr if j tube difficulty will obtain kub with gastrograffin set up hhc for tf at home pt will be ok to d/c from surgery stand point Ryne Be MD Sep 18, 2016 10:03
[2016-09-18] MEDS: TIOTROPIUM BROMIDE 18 MCG INH INH SCH (21:00)
[2016-09-19] VITALS (7 sets, daily range): BP systolic 92–112; BP diastolic 58–63; PULSE 84–108; RESP 15–22; TEMP 96–98.6; O2SAT 89–100
[2016-09-19] MEDS: oxyCODONE HCL ORAL CONC 20 MG/ML SYRINGE PO SCH ×4 (05:05→23:58)
[2016-09-19] MEDS: PCA - TOTAL MG MORPHINE DELIVERED PER SHIFT SCH ×4 (06:00→23:58)
[2016-09-19] MEDS: LACTATED RINGER'S 1000 ML INJ 1,000 ML IV SCH ×3 (08:00→21:53)
[2016-09-19] MEDS: ATENOLOL 25 MG TAB PO SCH (08:18)
[2016-09-19] MEDS: PANTOPRAZOLE SOD 40 MG DELAYED RELEASE TAB PO SCH (08:22)
[2016-09-19] MEDS: MULTIVITAMIN TAB PO SCH (08:22)
[2016-09-19] MEDS: LACTATED RINGER'S 1000 ML IV SCH (08:23)
[2016-09-19] MEDS: BUDESONIDE-FORMOTEROL 160/4.5 MCG INHALER INH SCH ×2 (08:23→21:00)
[2016-09-19] MEDS: ONDANSETRON ODT 4 MG TAB PO SCH ×3 (08:23→16:30)
[2016-09-19] MEDS: SODIUM CHLORIDE 0.9% FLUSH 5 ML FLUSH IVF SCH ×2 (08:23→21:13)
--- NOTE | 2016-09-19 12:44 | HHI.PR ---
Subjective Subjective Notes pain ok, J-tube flushing slow Objective Vitals/I&O Vital Signs Date Time Temp Pulse Resp B/P Pulse Ox O2 Delivery O2 Flow Rate FiO2 09/19/16 08:35 89 Nasal Cannula 2.00 09/19/16 08:00 96.0 87 15 93/58 Cardiovascular: Regular Lungs: Clear Abdomen: Non-distended, Post-op tenderness Extremities: No edema, Perfused Narrative Exam j-tube site c/d/i free of infection A/P Assessment and Plan 66yo male s/p lap J-tube, stable. - trouble with resistance with tube feeds, flushed not clogged - will setup for DC tomorrow if j-tube functions well overnight Yuriy Elaine MD Sep 19, 2016 12:44
[2016-09-19] MEDS: TIOTROPIUM BROMIDE 18 MCG INH INH SCH (21:00)
[2016-09-19] MEDS ORDERED: DIATRIZOATE MEGLUM/DIATRIZOATE SOD 120 ML BTL (for RAD DIAG) J-TUBE ONE (21:02)
--- NOTE | 2016-09-19 21:34 | RADRPT ---
EXAM DATE/TIME: 09/19/2016 20:39 [facility] COMPARISON: No previous studies available for comparison. INDICATIONS : Confirmation of Jejunostomy tube. MEDICAL HISTORY : Hypertension. Chronic obstructive pulmonary disease. Carcinoma, gastric. SURGICAL HISTORY : None. ENCOUNTER: Initial ACUITY: 1 day PAIN SCORE: 0/10 LOCATION: Bilateral Abdomen FINDINGS: Injection of jejunostomy tube reveals contrast opacification of multiple loops of jejunum. No periton eal leakage identified. There is some residual contrast in large bowel. Diffuse ileus present. CONCLUSION: Jejunostomy tube injection reveals contrast within multiple loops of small bowel without evidence for leakage. Jori Livingston MD on September 19, 2016 at 21:31 Board Certified Radiologist. This report was verified electronically.
[2016-09-20] VITALS (7 sets, daily range): BP systolic 80–115; BP diastolic 50–64; PULSE 81–114; RESP 17–20; TEMP 95.9–99.3; O2SAT 83–100
[2016-09-20] MEDS: oxyCODONE HCL ORAL CONC 20 MG/ML SYRINGE PO SCH ×4 (04:55→22:16)
[2016-09-20] MEDS: ATENOLOL 25 MG TAB PO SCH (08:35)
[2016-09-20] MEDS: PANTOPRAZOLE SOD 40 MG DELAYED RELEASE TAB PO SCH (08:35)
[2016-09-20] MEDS: MULTIVITAMIN TAB PO SCH (08:35)
[2016-09-20] MEDS: ONDANSETRON ODT 4 MG TAB PO SCH ×3 (08:35→17:08)
[2016-09-20] MEDS: SODIUM CHLORIDE 0.9% FLUSH 5 ML FLUSH IVF SCH ×2 (08:35→21:00)
[2016-09-20] MEDS: BUDESONIDE-FORMOTEROL 160/4.5 MCG INHALER INH SCH ×2 (08:37→21:00)
--- NOTE | 2016-09-20 08:40 | HHI.FF ---
Face to Face Verification Diagnosis: (1) Failure to thrive in adult (2) Gastric adenocarcinoma Home Health Nursing Order: Wound care and dressing changes Instructions: Tube feeding----Jevity 15 at 60 cc/hr Flush Q12 coke---use 5 cc syringe No free water flushes needed---patient takes PO as well Family and patient teaching Also going home with home oxygen at 3L continuous I have seen patient Renard Mario on 09/20/16. My clinical findings support the need for the requested home health care services because: Limited ability to care for self I certify that my clinical findings support that this patient is homebound because: Post-op weakness Unsteady gait/balance Mary Baker Sep 20, 2016 08:40
[2016-09-20] MEDS ORDERED: KANGAROO JOEY P1 MIS (08:41)
[2016-09-20] MEDS ORDERED: MAGNESIUM CITRATE SOLN 300 ML BTL PO ONE (09:00)
[2016-09-20] MEDS ORDERED: MAGNESIUM HYDROXIDE SUSP 30 ML CUP PO ONE (09:00)
[2016-09-20] MEDS: ACETAMINOPHEN/HYDROcodone 325 MG/5 MG TAB PO PRN (09:47)
[2016-09-20] MEDS ORDERED: OXYGENTANK NAS.CANULA (09:52)
[2016-09-20] MEDS ORDERED: SODIUM CHLORID 0.9% 500 ML INJ 500 ML IV ONE (11:30)
--- NOTE | 2016-09-20 13:30 | MP ---
cc: ELOISE CHEN M.D. Corrected Copy: 10/07/16 DATE OF SURGERY 09/17/2016 PREOPERATIVE DIAGNOSES 1. Gastric cancer. 2. Malnutrition secondary to limited p.o. intake. POSTOPERATIVE DIAGNOSES 1. Gastric cancer. 2. Malnutrition secondary to limited p.o. intake. PROCEDURE PERFORMED Laparoscopic jejunostomy tube placement. SURGEON Eloise Chen MD [employer] Ryne Be MD ANESTHESIA General endotracheal COMPLICATIONS None. INDICATION FOR PROCEDURE Mr. Mario is very pleasant 66-year-old gentleman who unfortunately has a recurrent gastric cancer. He is getting ready to undergo additional chemoradiation. The patient has had a longstanding problem with p.o. intake. He has lost a significant amount of weight. He is unable to meet his adequate nutrition needs. He was seen by Dr. Dos Santos who referred him over for feeding jejunostomy. The risks and benefits of jejunostomy tube placement was discussed with him and his daughter and they were agreeable. DETAILS The patient was identified, brought to the operating room and placed supine on the operating table. After adequate endotracheal anesthesia was achieved, the abdomen was prepped and draped in standard surgical fashion. Infraumbilical space was anesthetized with 0.25% Marcaine. Infraumbilical incision was made. Dissection was carried down through the subcutaneous tissue in the midline fascia. The midline fascia was then incised sharply. A hemostat was then used to gain access to the abdominal cavity without any difficulty. Blunt balloon trocar was inserted and the abdomen was insufflated with 15 mmHg using CO2 gas. Next, two 5-mm trocars were placed in the upper midline under direct vision after anesthetizing the skin and subcutaneous tissue with 0.25% Marcaine. Attention was directed to the right upper quadrant where the ligament of Treitz was identified. The jejunum was then followed distally about 20 cm. A site was then selected. The small bowel was then held up and a T-fastener was used to puncture the small bowel and hold it up to the abdominal wall. Once this was accomplished, we used 3-0 GI silks and laparoscopically sutured the small bowel up to the abdominal wall. Once this was accomplished, an 18-gauge spinal needle was used to access the small bowel lumen without any difficulty. The guidewire was inserted and advanced in the distal small bowel. Distal small bowel was confirmed to ensure that the feeding tube would go distally and was not going proximally. Once we did this, an incision was made on the anterior abdominal wall. A 20-Bruneian dilator was used to dilate up the tract. An 18-Bruneian KIMBERLEE jejunostomy tube was then inserted over the guidewire and placed into the distal small bowel. The balloon was then insufflated with 4 cc of saline and pulled up to the abdominal wall. Introducer was removed without any difficulty. An additional silk stay suture was placed on the medial side of the bowel in order to ensure that it was firmly secured to the abdominal wall. Jejunostomy tube was again confirmed a second time to be in the distal small bowel. The balloon was tested prior to inserting and it was intact, without evidence of a leak. The jejunostomy tube was then photographed in place. The flange was brought down to appropriately tightened the balloon up to the abdominal wall. A 0 silk was then used to secure the flange to the tube. A 2-0 nylon was then used to secure the flange to the abdominal wall. The patient tolerated the procedure well. The abdomen was then desufflated. All ports were removed under direct vision. Omentum was placed around the feeding tube entry site. The midline fascia was repaired with 0 Vicryl in an interrupted fashion. The skin was closed 4-0 Vicryl. The patient tolerated the procedure well, was awakened and brought to the recovery in stable condition. MD JUAN Lopez/KARRI /3:39 PM /10:50 AM
[2016-09-20] MEDS: LACTATED RINGER'S 1000 ML INJ 1,000 ML IV SCH (14:00)
[2016-09-20] MEDS: fentaNYL 25 MCG/HR PATCH T-DERMAL SCH (17:00)
--- NOTE | 2016-09-20 17:51 | PD.CONS ---
[facility] By [facility] surgery Reason for Consult Medical management Primary Care Physician No Primary Care Physician Diagnoses: History of Present Illness This is a 66-year-old male patient with past medical history which includes high -grade gastric adenocarcinoma diagnosed April 2016, COPD oxygen dependent, GERD, hyperlipidemia, hypertension. Patient has undergone total of 5 rounds of chemotherapy and 29 radiation treatments for his adenocarcinoma- followed by Dr. Dos Santos. The patient has had progressive weight loss, abdominal pain and just general failure to thrive associated with worsening performance status. He was hospitalized abdominal pain, decreased appetite, nausea, vomiting as well as constipation in late August. Patient presented to the hospital on 2016 for laparoscopic jejunostomy tube placement but kept Gen. surgery. Patient initially was having difficulty with tube feeding which has been resolved. Patient was also having difficulty with constipation with associated nausea and vomiting resolved after enema today. Patient had episode of hypotension today where his blood pressure went down to 80/60. Patient was asymptomatic at that that time, denies feeling dizzy or lightheaded. Patient also required increased oxygen demand is on oxygen is on 3 L O2 saturating 91%. Patient denies shortness of breath. Patient does report occasional cough as he is a chronic lifelong smoker smokes half pack a day since he was 16 years old. MAXIMUM TEMPERATURE is 99.3. Patient denies chills, nausea vomiting or chest pain. Review of Systems Except as stated in HPI: all other systems reviewed are Neg Past Family Social History Allergies: Coded Allergies: No Known Allergies (Unverified , 09/17/16) Past Medical History High-grade gastric adenocarcinoma initially diagnosed in April of 2016. COPD GERD (gastroesophageal reflux disease) Hypercholesterolemia Hypertension Previous Radiation Therapy ([place] 2015) Protein Calorie Malnutrition Past Surgical History EGD Infusion port No known surgical/procedures Colonoscopy in 2014 Reported Medications Phenergan Supp (Promethazine HCl) 25 Mg Supp 25 Mg RECTAL Q6H PRN Protonix (Pantoprazole Sodium) 40 Mg Tab 40 Mg PO DAILY Fentanyl Patch 72 HR (Fentanyl) 50 Mcg/Hr Patch 50 Mcg T-DERMAL Q72H Remove old patch when new one placed. Symbicort Inh (Budesonide/Formoterol Fumarate) 160-4.5 Mcg/Act Aero 1 Puff INH Q12HR Proventil Hfa 6.7 GM Inh (Albuterol Sulfate) 90 Mcg/Act Aer 2 Puff INH Q4-6H PRN Atenolol 25 Mg Tab 12.5 Mg PO DAILY One Daily (Multiple Vitamin) 1 Tab 1 Tab PO DAILY Spiriva Handihaler (Tiotropium Inh) 18 Mcg Cap 18 Mcg INH HS 1 capsule = 18 mcg Ondansetron (Ondansetron HCl) 8 Mg Tab 8 Mg PO TID Oxycodone Liq (Oxycodone HCl) 20 Mg/Ml Conc 5-7.5 Mg PO Q6H Active Ordered Medications Current Medications Medications (Trade) Dose Ordered Sig/Davina Route Start Time Stop Time Status Last Admin (Lr 1000 ml Inj) 1,000 ml @ 30 mls/hr Q24H IV 09/17/16 11:45 09/17/16 12:15 (NS Flush) 5 ml UNSCH PRN IVF 09/17/16 12:15 (Heparin Central Flush) 250 units UNSCH PRN IVF 09/17/16 12:15 Heparin Sodium (Porcine) 500 units 500 units UNSCH IVF 09/17/16 12:15 09/17/16 21:34 (Lr 1000 ml Inj) 1,000 ml @ 100 mls/hr Q10H IV 09/17/16 16:00 09/17/16 16:00 (NS Flush) 2 ml UNSCH PRN IVF 09/17/16 15:30 (NS Flush) 2 ml BID IVF 09/17/16 21:00 09/20/16 08:35 (Toradol Inj) 15 mg Q6H PRN IVP 09/17/16 15:30 09/22/16 15:29 09/17/16 21:34 ([place] 5-325 Mg) 1 tab Q4H PRN PO 09/17/16 15:30 (Dilaudid Pf Inj) 0.5 mg Q2H PRN IV 09/17/16 15:30 09/18/16 13:44 ([place] 5-325 Mg) 2 tab Q4H PRN PO 09/17/16 15:30 09/20/16 09:47 (Zofran Inj) 4 mg Q4H PRN IV 09/17/16 15:30 (Narcan Inj) 0.4 mg UNSCH PRN IV 09/17/16 15:30 (Benadryl Inj) 25 mg Q6H PRN IV 09/17/16 15:30 [employer] Dosage Infused (Pha) 1 Q8HR .XX 09/17/16 16:00 (Symbicort 160-4.5 Inh) 1 puff Q12HR INH 09/17/16 21:00 09/20/16 08:37 (Duragesic 25 Mcg Patch.72 Hr) 1 patch Q72H T-DERMAL 09/17/16 17:00 09/17/16 18:54 (Theragran) 1 tab DAILY PO 09/17/16 16:00 09/20/16 08:35 (Roxicodone Intensol Liq) 5 mg Q6H PO 09/17/16 17:00 09/20/16 04:55 (Protonix) 40 mg DAILY PO 09/17/16 16:00 09/20/16 08:35 (Phenergan Supp) 25 mg Q6H PRN RECTAL 09/17/16 15:30 (Spiriva Inh) 18 mcg HS INH 09/17/16 21:00 (Zofran Odt) 8 mg TID PO 09/17/16 18:00 09/20/16 17:08 Miscellaneous Information 1 Q72H TD 09/17/16 17:00 09/17/16 17:00 Family History Mother of old age at 88 Father at 88 had black 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 Denies further family medical history Social History Patient patient reports he smokes proximally half a pack a day since he was 16 years old Denies EtOH use Physical Exam Vital Signs Vital Signs Date Time Temp Pulse Resp B/P Pulse Ox O2 Delivery O2 Flow Rate FiO2 09/20/16 16:00 95.9 99 20 91 09/20/16 14:40 90/60 09/20/16 12:45 91 09/20/16 12:00 97.9 108 18 80/60 83 86/50 09/20/16 09:06 3.00 09/20/16 07:35 99.3 114 17 115/53 95 09/20/16 00:00 96.8 81 17 106/64 100 09/19/16 21:13 Nasal Cannula 3.00 09/19/16 20:00 97.5 93 19 111/61 100 Physical Exam GENERAL: This is a thin 66 from male patient appears older than stated age, in no apparent distress. SKIN: Thin leathery skin with scattered ecchymotic areas bilateral upper extremities HEAD: Atraumatic. Normocephalic. No temporal or scalp tenderness. Sunken temples EYES: Extraocular motions intact. No scleral icterus. No injection or drainage. CARDIOVASCULAR: Tachycardic without murmurs, gallops, or rubs. RESPIRATORY: Decreased air entry scattered exotropia wheezing GASTROINTESTINAL: Abdomen soft, non-tender, nondistended. No hepato-splenomegaly , or palpable masses. No guarding. MUSCULOSKELETAL: Extremities without clubbing, cyanosis, or edema. No joint tenderness, effusion, or edema noted. No calf tenderness. Negative Homans sign bilaterally. NEUROLOGICAL: Awake and alert. No focal deficits appreciated. Motor and sensory grossly within normal limits. 4 out of 5 muscle strength in all muscle groups. Normal speech. Imaging Last Impressions Abdomen X-Ray 09/19/16 0000 Signed Impressions: Service Date/Time: Monday, September 19, 2016 20:39 - CONCLUSION: Jejunostomy tube injection reveals contrast within multiple loops of small bowel without evidence for leakage. Jori Livingston MD Assessment and Plan Assessment and Plan This is a 66-year-old male patient with past medical history which includes high -grade gastric adenocarcinoma diagnosed April 2016, COPD oxygen dependent, GERD, hyperlipidemia, hypertension. Patient has undergone total of 5 rounds of chemotherapy and 29 radiation treatments for his adenocarcinoma- followed by Dr. Dos Santos. 09/17/2016 for laparoscopic jejunostomy tube placement but kept Gen. surgery. Patient had episode of asymptomatic hypotension increased oxygen demand. Protein calorie malnutrition Failure to thrive Poor by mouth intake Status post shunt jejunostomy tube placement with Jevity 1.5 at 60 cc per hour- tolerating tube feedings- will add water flush 150 cc every 6 hours Continue by mouth intake as tolerated BMP pending Hypotension- asymptomatic Metoprolol has been DC'd Patient has received 500 normal saline bolus Continue lactated Ringer's 100 ML's per hour Continue to monitor blood pressure- hold sedating medications/narcotics if blood pressure less than 100 Adenocarcinoma follow-up with oncology COPD- with increased oxygen demand Chest x-ray ordered and pending continue on oxygen via nasal cannula to maintain oxygen saturation above 90% Continue Symbicort, albuterol as needed and Spiriva Hypertension history Metoprolol DC'd Constipation start bowel regimen DVT prophylaxis SCDs Discussed plan of care with patient neighbor who is at bedside RN and Dr. Flores CXR reviewed pneumoperitoneum- Dr. Flores and Dr. Horne general surgery notified- Dr. Horne felt this was likely due to the laparoscopic jejunostomy tube placement ATTEnding note 66 years old male admitted for non functioning J tube now functioning tube feedings restarted PE: lungs clear regular rhtyhm abdomen- J tube in place, soft, + bowel sounds extremities no edema Gastric adenocarcinoma S/P Jejunostomy tube placement continue nutritional support The exam, history, and the medical decision-making described in the above note were completed with the assistance of the mid-level provider. I reviewed and agree with the findings presented. I attest that I had a [id number] encounter with the patient on the same day, and personally performed and documented my assessment and findings in the medical record. Lashon Boss Sep 20, 2016 17:50 Naya Flores MD Sep 20, 2016 19:20
--- NOTE | 2016-09-20 18:18 | RADRPT ---
EXAM DATE/TIME: 09/20/2016 17:31 [facility] COMPARISON: CT ABDOMEN & PELVIS W CONTRAST, August 28, 2016, 19:11. ABDOMEN KUB ONLY, F ebruary 2016, 20:39. INDICATIONS : Short of breath MEDICAL HISTORY : Hypertension. Chronic obstructive pulmonary disease. Carcinoma, gastric. SURGICAL HISTORY : None. ENCOUNTER: Initial ACUITY: 2 days PAIN SCORE: 0/10 LOCATION: Bilateral chest FINDINGS: The heart size is normal. There is increased density seen at the right base. The left l sae is grossly clear. There is a CT compatible [id number] in place from the right internal jugular approach with the tip overlying the SVC. There does appear to a large amount of air in the upper ab domen. Some degree of free air in the peroneal cavity can be considered. CONCLUSION: 1. Possible pneumoperitoneum. 2. Right lower lobe consolidation or atelectasis. Bharath Franklin MD on September 20, 2016 at 18:09 Board Certified Radiologist. This report was verified electronically.
[2016-09-20] MEDS: [UNRECOGNIZED DRUG - REMARK] G-TUBE SCH (18:30)
[2016-09-20 20:58] LABS: AUTOMATED NEUTROPHIL # 10.5 TH/MM3 (1.8-7.7); BASOPHIL % 0.1 % (0.0-2.0); EOSINOPHIL % 0.1 % (0.0-4.0); HEMATOCRIT 34.7 % (39.0-51.0); LYMPH % 11.1 % (9.0-44.0); LYMPHOCYTE # 1.5 TH/MM3 (1.0-4.8); MEAN CELL VOLUME 90.4 FL (80.0-100.0); MEAN CORPUSCULAR HEMOGLOBIN 30.6 PG (27.0-34.0); MEAN CORPUSCULAR HGB CONC 33.9 % (32.0-36.0); MONO % 10.2 % (0.0-8.0); NEUT % 78.5 % (16.0-70.0); PLATELET COUNT 191 TH/MM3 (150-450); RED BLOOD COUNT 3.84 MIL/MM3 (4.50-5.90); WHITE BLOOD COUNT 13.4 TH/MM3 (4.0-11.0)
[2016-09-20 20:59] LABS: HEMO FLAGS AUTO DIFF
[2016-09-20] MEDS: DOCUSATE SODIUM 100 MG CAP PO SCH (21:00)
[2016-09-20 21:18] LABS: ALKALINE PHOSPHATASE 109 U/L (45-117); ALT (GPT) 10 U/L (12-78); ANION GAP 4 MEQ/L (5-15); AST (GOT) 12 U/L (15-37); BICARBONATE 36.8 MEQ/L (21.0-32.0); BLOOD UREA NITROGEN 10 MG/DL (7-18); CHLORIDE 91 MEQ/L (98-107); GLOMERULAR FILTRATION RATE 166 ML/MIN (>89); POTASSIUM 3.9 MEQ/L (3.5-5.1); SODIUM (NA) 132 MEQ/L (136-145); TOTAL BILIRUBIN ADULT 0.7 MG/DL (0.2-1.0)
[2016-09-20 21:48] LABS: BANDS 31 % (0-6); NEUTROPHIL # MANUAL DIFF 9.6 TH/MM3 (1.8-7.7); PLATELET ESTIMATE SMEAR NORMAL (NORMAL); PLATELET MORPHOLOGY NORMAL (NORMAL); POLYS (SEG NEUTROPHILS) 41 % (16-70); SCAN/DIFF FINAL DIFF MANUAL; WBC DIFF SAMPLE 100
[2016-09-20] MEDS: TIOTROPIUM BROMIDE 18 MCG INH INH SCH (22:09)
[2016-09-21] MEDS: oxyCODONE HCL ORAL CONC 20 MG/ML SYRINGE PO SCH ×3 (04:23→17:19)
[2016-09-21] MEDS: LACTATED RINGER'S 1000 ML IV SCH ×2 (04:29→11:45)
[2016-09-21] MEDS: [UNRECOGNIZED DRUG - REMARK] G-TUBE SCH ×4 (06:00→18:00)
[2016-09-21] MEDS: REMOVE OLD DURAGESIC (FENTANYL) PATCH TD SCH (07:36)
[2016-09-21 08:00] VITALS: BP 94/52; PULSE 88; RESP 17; TEMP 98.1; O2SAT 91
[2016-09-21] MEDS: PANTOPRAZOLE SOD 40 MG DELAYED RELEASE TAB PO SCH (08:19)
[2016-09-21] MEDS: ONDANSETRON ODT 4 MG TAB PO SCH ×3 (08:19→17:19)
[2016-09-21] MEDS: MULTIVITAMIN TAB PO SCH (08:19)
[2016-09-21] MEDS: SODIUM CHLORIDE 0.9% FLUSH 5 ML FLUSH IVF SCH ×2 (09:00→21:00)
[2016-09-21] MEDS: BUDESONIDE-FORMOTEROL 160/4.5 MCG INHALER INH SCH ×2 (09:00→21:15)
[2016-09-21] MEDS: DOCUSATE SODIUM 100 MG CAP PO SCH ×2 (09:00→21:00)
[2016-09-21] MEDS: POLYETHYLENE GLYCOL 17 GM PKG PO SCH (09:00)
[2016-09-21 09:31] VITALS: O2SAT 94
[2016-09-21] MEDS: LACTATED RINGER'S 1000 ML INJ 1,000 ML IV SCH ×2 (10:00→20:00)
--- NOTE | 2016-09-21 10:33 | HHI.PR ---
Subjective Subjective Notes Resting in bed Family at bedside States he feels great today Home oxygen delivered yesterday and waiting for feeding pump to be delivered today Objective Vitals/I&O Vital Signs Date Time Temp Pulse Resp B/P Pulse Ox O2 Delivery O2 Flow Rate FiO2 09/21/16 09:31 94 Nasal Cannula 5.00 09/21/16 08:00 98.1 88 17 94/52 Labs Laboratory Tests Test 09/20/16 18:50 White Blood Count 13.4 Red Blood Count 3.84 Hemoglobin 11.8 Hematocrit 34.7 Mean Corpuscular Volume 90.4 Mean Corpuscular Hemoglobin 30.6 Mean Corpuscular Hemoglobin 33.9 Concent Red Cell Distribution Width 16.0 Platelet Count 191 Mean Platelet Volume 9.6 Neutrophils (%) (Auto) 78.5 Lymphocytes (%) (Auto) 11.1 Monocytes (%) (Auto) 10.2 Eosinophils (%) (Auto) 0.1 Basophils (%) (Auto) 0.1 Neutrophils # (Auto) 10.5 Lymphocytes # (Auto) 1.5 Monocytes # (Auto) 1.4 Eosinophils # (Auto) 0.0 Basophils # (Auto) 0.0 CBC Comment AUTO DIFF Differential Total Cells 100 Counted Neutrophils % (Manual) 41 Band Neutrophils % 31 Lymphocytes % 16 Monocytes % 12 Neutrophils # (Manual) 9.6 Differential Comment FINAL DIFF MANUAL Platelet Estimate NORMAL Platelet Morphology Comment NORMAL Sodium Level 132 Potassium Level 3.9 Chloride Level 91 Carbon Dioxide Level 36.8 Anion Gap 4 Blood Urea Nitrogen 10 Creatinine 0.50 Estimat Glomerular Filtration 166 Rate Random Glucose 182 Calcium Level 7.8 Total Bilirubin 0.7 Aspartate Amino Transf 12 (AST/SGOT) Alanine Aminotransferase 10 (ALT/SGPT) Alkaline Phosphatase 109 Total Protein 5.3 Albumin 2.0 Cardiovascular: Regular Lungs: Other (diminished ) Abdomen: Other (J tube in place without complications; Lap sites c/d/i ) Extremities: No edema A/P Assessment and Plan 66 year old male POD4 lap J tube placement -Tolerating TF at goal -Regular diet -Pain controlled -Now on 6L NC; appreciate HEPAS consult for medical management -CM consult for home oxygen, feeding pump, tube feed and HHC I certify and attest that I went in the patient's room and saw him with Ms. Baker. I reviewed the care plan and directed her to document our visit in the EMR. I discussed the plan with the patient and the family. ELOISE CHEN MD FACS Mary BakerP Sep 21, 2016 10:33 Eloise Chen MD Sep 23, 2016 09:41
--- NOTE | 2016-09-21 11:25 | HHI.PR ---
Subjective Remarks no abdominal pain patient very feisty- looking forward to going home with all supplies tolerating tube feedings doing good IS efforts Objective Vitals Vital Signs Date Time Temp Pulse Resp B/P Pulse Ox O2 Delivery O2 Flow Rate FiO2 09/21/16 09:31 94 Nasal Cannula 5.00 09/21/16 08:20 Nasal Cannula 6.00 Humidified 09/21/16 08:00 98.1 88 17 94/52 91 09/21/16 05:08 Nasal Cannula 6.00 Humidified 09/20/16 16:15 90/60 09/20/16 16:00 95.9 99 20 91 09/20/16 14:40 90/60 09/20/16 12:45 91 09/20/16 12:00 97.9 108 18 80/60 83 86/50 I/O 09/20/16 09/20/16 09/20/16 09/21/16 09/21/16 09/21/16 07:00 15:00 23:00 07:00 15:00 23:00 Intake Total 799 ml 859 ml 371 ml 120 ml Output Total 400 ml 500 ml 600 ml Balance 399 ml -500 ml 859 ml -229 ml 120 ml Intake Oral 240 ml 0 ml 120 ml Tube Feeding 559 ml 859 ml 361 ml Other 10 ml Output Urine Total 400 ml 600 ml Stool Total 500 ml # Voids 2 # Bowel Movements 1 1 0 Result Diagram: 09/20/16184909/20/161849 Imaging Last Impressions Chest X-Ray 09/20/16 0000 Signed Impressions: Service Date/Time: Tuesday, September 20, 2016 17:31 - CONCLUSION: 1. Possible pneumoperitoneum. 2. Right lower lobe consolidation or atelectasis. Bharath Franklin MD Abdomen X-Ray 09/19/16 0000 Signed Impressions: Service Date/Time: Monday, September 19, 2016 20:39 - CONCLUSION: Jejunostomy tube injection reveals contrast within multiple loops of small bowel without evidence for leakage. Jori Livingston MD Objective Remarks anicteric lungs no rales or wheezes regular rhythm jejunostomy site- dry, soft, good bowel sounds, nontender, no guarding extremities no edema A/P Assessment and Plan This is a 66-year-old male patient with past medical history which includes high -grade gastric adenocarcinoma diagnosed April 2016, COPD oxygen dependent, GERD, hyperlipidemia, hypertension. Patient has undergone total of 5 rounds of chemotherapy and 29 radiation treatments for his adenocarcinoma- followed by Dr. Dos Santos. 09/17/2016 for laparoscopic jejunostomy tube placement but kept Gen. surgery. Patient had episode of asymptomatic hypotension increased oxygen demand. Status post shunt jejunostomy tube placement with Jevity 1.5 at 60 cc per hour- tolerating tube feedings Continue by mouth intake as tolerated Hypotension- asymptomatic- BP readings improved hold sedating medications/narcotics if blood pressure less than 100 Gastric Adenocarcinoma follow-up with oncology COPD- now 02 requiring, continue on oxygen via nasal cannula to maintain oxygen saturation above 90% - 02 to be delievered to home Continue Symbicort, albuterol as needed and Spiriva Encourage incentive spirometry hourly- good effort Hypertension history BB discontinued Home health care nursing consulted- to ff up with jejunostomy site- monitor d/w Home health care agency staff- who is at bedside to monitor and have agency nursing staff to monitor Naya Flores MD Sep 21, 2016 11:25 nursing staff to monitor Naya Flores MD Sep 21, 2016 11:25
[2016-09-21 12:00] VITALS: BP 90/53; PULSE 98; RESP 17; TEMP 97.9; O2SAT 95
[2016-09-21] MEDS: PCA - TOTAL MG MORPHINE DELIVERED PER SHIFT SCH ×2 (14:00→21:57)
[2016-09-21 17:00] VITALS: BP 94/60; PULSE 95; RESP 19; TEMP 97.8; O2SAT 100
[2016-09-21 20:17] VITALS: BP 104/71; PULSE 90; RESP 16; TEMP 97.3; O2SAT 97
[2016-09-21] MEDS: TIOTROPIUM BROMIDE 18 MCG INH INH SCH (21:00)
[2016-09-22] VITALS (8 sets, daily range): BP systolic 93–107; BP diastolic 54–70; PULSE 69–103; RESP 16–21; TEMP 96.9–98; O2SAT 90–99
[2016-09-22] MEDS: oxyCODONE HCL ORAL CONC 20 MG/ML SYRINGE PO SCH ×4 (00:07→17:14)
[2016-09-22] MEDS: PCA - TOTAL MG MORPHINE DELIVERED PER SHIFT SCH ×3 (00:08→22:00)
[2016-09-22] MEDS: [UNRECOGNIZED DRUG - REMARK] G-TUBE SCH ×4 (05:00→17:15)
[2016-09-22] MEDS: LACTATED RINGER'S 1000 ML INJ 1,000 ML IV SCH (05:00)
[2016-09-22] MEDS: MULTIVITAMIN TAB PO SCH (07:19)
[2016-09-22] MEDS: PANTOPRAZOLE SOD 40 MG DELAYED RELEASE TAB PO SCH (07:19)
[2016-09-22] MEDS: DOCUSATE SODIUM 100 MG CAP PO SCH ×2 (07:20→21:00)
[2016-09-22] MEDS: POLYETHYLENE GLYCOL 17 GM PKG PO SCH (07:20)
[2016-09-22] MEDS: ONDANSETRON ODT 4 MG TAB PO SCH ×3 (07:20→17:13)
[2016-09-22] MEDS: SODIUM CHLORIDE 0.9% FLUSH 5 ML FLUSH IVF SCH ×2 (07:20→19:37)
[2016-09-22] MEDS: BUDESONIDE-FORMOTEROL 160/4.5 MCG INHALER INH SCH (07:35)
[2016-09-22] MEDS: fentaNYL 25 MCG/HR PATCH T-DERMAL SCH (07:38)
--- NOTE | 2016-09-22 11:27 | HHI.PR ---
Subjective Subjective Notes doing well, tolerating TF, had a few BMs, denies abdominal pain. is requiring increased oxygen Objective Vitals/I&O Vital Signs Date Time Temp Pulse Resp B/P Pulse Ox O2 Delivery O2 Flow Rate FiO2 09/22/16 08:38 20 09/22/16 08:00 97.3 96 101/63 91 09/22/16 08:00 Nasal Cannula 6.00 35 Humidified Cardiovascular: Regular Lungs: Clear Abdomen: Non-distended, BS normal Narrative Exam J tube intact, abd soft A/P Assessment and Plan s/p lap J tube POD 5 ok for DC when cleared by medical service. unsure of etiology of increasing oxygen requirements. patient denies SOB. cxr unremarkable can FU in office Lebron Arredondo MD Sep 22, 2016 11:27
[2016-09-22] MEDS: LACTATED RINGER'S 1000 ML IV SCH (11:39)
--- NOTE | 2016-09-22 16:57 | HHI.PR ---
Subjective Remarks coughing bringing thick lt beige colored sputum on exam with some expiratory wheezes and rhonchi good incentive spirometry efforts Objective Vitals Vital Signs Date Time Temp Pulse Resp B/P Pulse Ox O2 Delivery O2 Flow Rate FiO2 09/22/16 13:08 18 09/22/16 12:03 18 09/22/16 12:00 96.9 97 16 93/58 94 09/22/16 11:37 99 Nasal Cannula 3.00 09/22/16 08:38 20 09/22/16 08:00 97.3 96 20 101/63 91 09/22/16 08:00 Nasal Cannula 6.00 35 Humidified 09/22/16 03:51 90 Venturi Mask 35 09/22/16 00:18 Nasal Cannula 4.00 09/22/16 00:12 98.0 69 16 94/54 95 09/21/16 21:15 Nasal Cannula 4.00 09/21/16 20:55 Nasal Cannula 4.00 09/21/16 20:17 97.3 90 16 104/71 97 09/21/16 17:00 97.8 95 19 94/60 100 I/O 09/21/16 09/21/16 09/21/16 09/22/16 09/22/16 09/22/16 07:00 15:00 23:00 07:00 15:00 23:00 Intake Total 371 ml 908 ml 1617 ml 645 ml 663 ml Output Total 600 ml 1060 ml 400 ml 475 ml Balance -229 ml 908 ml 557 ml 245 ml 188 ml Intake Oral 0 ml 120 ml 960 ml 400 ml IV Total 278 ml 220 ml 237 ml 263 ml Tube Feeding 361 ml 510 ml 437 ml 403 ml Tube Irrigant 5 ml Other 10 ml Output Urine Total 600 ml 1060 ml 400 ml 475 ml # Bowel Movements 0 0 0 Result Diagram: 09/20/16 1850 09/20/16 1850 Imaging Last Impressions Chest X-Ray 09/20/16 0000 Signed Impressions: Service Date/Time: Tuesday, September 20, 2016 17:31 - CONCLUSION: 1. Possible pneumoperitoneum. 2. Right lower lobe consolidation or atelectasis. Bharath Franklin MD Abdomen X-Ray 09/19/16 0000 Signed Impressions: Service Date/Time: Monday, September 19, 2016 20:39 - CONCLUSION: Jejunostomy tube injection reveals contrast within multiple loops of small bowel without evidence for leakage. Jori Livingston MD Objective Remarks anicteric lungs with expiratory wheezes and rhonchi regular rhythm jejunostomy site- dry, soft, good bowel sounds, nontender, no guarding extremities no edema, no calf swelling A/P Assessment and Plan This is a 66-year-old male patient with past medical history which includes high -grade gastric adenocarcinoma diagnosed April 2016, COPD GERD, hyperlipidemia, hypertension. Patient has undergone total of 5 rounds of chemotherapy and 29 radiation treatments for his adenocarcinoma- followed by Dr. Dos Santos. 09/17/2016 for laparoscopic jejunostomy tube placement but kept Gen. surgery. Patient had episode of asymptomatic hypotension increased oxygen demand. Status post shunt jejunostomy tube placement with Jevity 1.5 at 60 cc per hour- tolerating tube feedings Continue by mouth intake as tolerated Acute respiratory Failure with COPD in exacerbation - higher 02 requirement Possible Pneumonia- hospital acquired- thick sputum start patient on Duonebulization q 4 and q 2 prn start IV steroids. start IV antibiotics d/w patient and daughter likely with underlying COPD (chronic heavy smoker) unmasked during this hospitalization post surgery continue good IS efforts check CXR now Consult Dr. Weinstein Gastric Adenocarcinoma follow-up with oncology Hypertension history Episode of Hypotension during this hospitalization - asymptomatic- BP readings improved- Resolved hold sedating medications/narcotics if blood pressure less than 100 BB discontinued Home health care nursing consulted- to ff up with jejunostomy site- monitor d/w Home health care agency staff- who is at bedside to monitor and have agency nursing staff to monitor Lovenox 30 mg SQ for DVT prophylaxis Naya Flores MD Sep 22, 2016 16:57
[2016-09-22] MEDS ORDERED: RESP: ALBUTEROL 2.5 MG/IPRATROPIUM 0.5 MG NEB (PRN) NEB (17:15)
--- NOTE | 2016-09-22 17:16 | RADRPT ---
EXAM DATE/TIME: 09/22/2016 16:56 [facility] COMPARISON: CHEST SINGLE AP, September 20, 2016, 17:31. INDICATIONS : Short of breath. MEDICAL HISTORY : Gastric carcinoma. Chronic obstructive pulmonary disease. SURGICAL HISTORY : Port placement. ENCOUNTER: Initial ACUITY: 3 weeks PAIN SCORE: 0/10 LOCATION: Bilateral chest FINDINGS: PA and lateral views of the chest were obtained and demonstrate a moderate amount of free air under b oth the right and left hemidiaphragms. This may be mildly increased compared to the prior study. Patc hy infiltrate remains at the right lung base which appears mildly improved. Left lung is clear. There is bilateral hyperinflation. The heart size remains within normal limits. The right-sided implantabl e port catheter remains in place. CONCLUSION: 1. Mild interval improvement in right lower lobe consolidation. 2. Free air is again noted in the abdomen which may be mildly increased. Sai Hughes MD on September 22, 2016 at 17:13 Board Certified Radiologist. This report was verified electronically.
[2016-09-22] MEDS: ENOXAPARIN SODIUM 30 MG/0.3 ML SYRINGE SQ SCH (18:19)
[2016-09-22] MEDS: methylPREDNISolone SOD SUCC 125 MG/2 ML VIAL IV PUSH SCH (18:19)
[2016-09-22] MEDS: PIPERACIL-TAZO 3.375 GM PREMIX 50 ML IV SCH (19:35)
[2016-09-22 21:29] LABS: BLOOD GAS BASE EXCESS 6.7 mmol/L (-2-2); BLOOD GAS CARBOXYHEMOGLOBIN 1.3 % (0-4); BLOOD GAS HCO3 30 mmol/L (22-26); BLOOD GAS METHEMOGLOBIN 0.6 % (0-2); BLOOD GAS O2 HGB SATURATION 83 % (90-100); BLOOD GAS OXYGEN CONTENT 13.4 Vol % (12.0-20.0); BLOOD GAS PCO2 41 mmHg (38-42); BLOOD GAS PO2 48 mmHg (61-120); BLOOD GAS TOTAL HGB 11.5 G/DL (12.0-16.0); TEMP CORR TO 98.6
[2016-09-22 21:33] LABS: CRITICAL VALUE YES
[2016-09-22 21:34] LABS: DRAW SITE RT RADIAL; FIO2 21 %; NUMBER OF ARTERIAL PUNCTURES 1; OXYGEN DEVICE ROOM AIR; STAT NO; ULNAR PULSE PRESENT
--- NOTE | 2016-09-22 22:00 | MB ---
cc: BINA ARBOLEDA MD DATE OF CONSULTATION 09/22/[address] Flores REASON FOR CONSULTATION Shortness of breath and COPD exacerbation. HISTORY OF THE PRESENT ILLNESS Mr. Mario is a pleasant 66-year-old male with longstanding history of COPD. He was also found to have adenocarcinoma of the stomach. He received five chemotherapy earlier. He was seeing Dr. Rivera and now he follows with Dr. Sweta Dos Santos. He had 5 cycles of chemotherapy and 29 radiation treatments. He has lost about 35 pounds of weight over the last three months. The patient was seen by Dr. Lebron Arredondo and secondary to limited intake and malnutrition, he had a laparoscopic jejunostomy tube placement. He still takes p.o. and supplemental feeding from the cystostomy tube. He has wheezing, cough, sputum production. No fever or chills. No night sweats. He had a workup done. His chest x-ray shows mild right lower lobe consolidation which is improving. His WBC count is 13.4, hemoglobin 11.8, hematocrit 34.7, MCV 90, platelet count 191. Sodium 132, potassium 3.9, chloride 91, CO2 36, BUN 10, creatinine 0.5. PAST MEDICAL HISTORY 1. Significant for history of adenocarcinoma of the stomach status post chemotherapy and radiation therapy. 2. History of COPD. 3. Gastroesophageal reflux disease. 4. Hypertension. MEDICATIONS He is currently takin. Zosyn. 2. IV Solu-Medrol 60 milligrams q.6h. 3. Lovenox 30 milligrams daily. 4. Albuterol Atrovent nebulizer treatment. 5. Oxycodone for pain. 6. Protonix 40 milligrams daily. ALLERGIES NO KNOWN DRUG ALLERGIES. SOCIAL HISTORY He is twice. 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 He has long history of smoking and continues to smoke one-half pack of cigarettes a day and takes a couple of drinks a day. FAMILY HISTORY He is . He lives alone. He has two daughters. REVIEW OF SYSTEMS He has lost 30 pounds of weight. Appetite is poor. No headache or dizziness. He has cough with sputum production. No chest pain. No DVT or pulmonary embolism. No coronary artery disease. PHYSICAL EXAMINATION GENERAL: Thin built, frail, elderly male. Mild short of breath. VITAL SIGNS: Blood pressure 104/70, heart rate 100, respirations 18, temperature 97.1. HEENT: Pupils are equal and reactive to light. Oral mucosa, nasal mucosa normal. NECK: Supple. JVP not raised. CHEST: He has bilateral expiratory rhonchi. CARDIOVASCULAR: S1, S2 normal. ABDOMEN: Soft, nondistended. He has a jejunostomy tube in place. EXTREMITIES: No edema. IMPRESSION 1. COPD exacerbation. 2. Bronchitis. 3. Improving lung infiltrate. 4. Status post jejunostomy tube placement. 6. Cancer of the stomach status post radiation therapy and chemotherapy. PLAN I have discussed with the patient we will check his blood gas. Arrange for him home nebulizer treatment. He will continue antibiotic Zosyn, aerosol treatment, IV Solu-Medrol, supplement his oxygen. He is on Lovenox for DVT prophylaxis. Protonix for GI prophylaxis. Further treatment will depend on the course in the hospital. Thank you Dr. Flores for this consultation. MD MARKO Wheatley/AMBER /7:58 PM /9:41 PM SRINIVASAN
[2016-09-23] VITALS (9 sets, daily range): BP systolic 101–108; BP diastolic 60–70; PULSE 76–110; RESP 18–21; TEMP 96.4–96.8; O2SAT 88–96
[2016-09-23] MEDS: oxyCODONE HCL ORAL CONC 20 MG/ML SYRINGE PO SCH ×5 (00:09→23:00)
[2016-09-23] MEDS: PIPERACIL-TAZO 3.375 GM PREMIX 50 ML IV SCH ×4 (00:10→21:50)
[2016-09-23] MEDS: methylPREDNISolone SOD SUCC 125 MG/2 ML VIAL IV PUSH SCH ×3 (00:10→12:02)
[2016-09-23] MEDS: RESP: ALBUTEROL 2.5 MG/IPRATROPIUM 0.5 MG NEB (SCH) NEB ×6 (00:31→20:08)
[2016-09-23] MEDS: Infusaport/Implanted VAD PRN NS Lock Flush IVF (05:59)
[2016-09-23] MEDS: [UNRECOGNIZED DRUG - REMARK] G-TUBE SCH ×4 (05:59→17:17)
[2016-09-23] MEDS: PCA - TOTAL MG MORPHINE DELIVERED PER SHIFT SCH ×3 (06:00→22:00)
[2016-09-23 07:40] LABS: AUTOMATED NEUTROPHIL # 4.6 TH/MM3 (1.8-7.7); BASOPHIL % 0.1 % (0.0-2.0); HEMATOCRIT 32.7 % (39.0-51.0); HEMO FLAGS DIFF FINAL; LYMPH % 4.9 % (9.0-44.0); LYMPHOCYTE # 0.2 TH/MM3 (1.0-4.8); MEAN CELL VOLUME 91.2 FL (80.0-100.0); MEAN CORPUSCULAR HEMOGLOBIN 30.5 PG (27.0-34.0); MEAN CORPUSCULAR HGB CONC 33.5 % (32.0-36.0); MONO % 2.2 % (0.0-8.0); NEUT % 92.8 % (16.0-70.0); PLATELET COUNT 200 TH/MM3 (150-450); RED BLOOD COUNT 3.59 MIL/MM3 (4.50-5.90); RED CELL DISTRIBUTION WIDTH 15.4 % (11.6-17.2); WHITE BLOOD COUNT 4.9 TH/MM3 (4.0-11.0)
[2016-09-23 08:12] LABS: BICARBONATE 28.9 MEQ/L (21.0-32.0); POTASSIUM 3.6 MEQ/L (3.5-5.1)
[2016-09-23] MEDS: POLYETHYLENE GLYCOL 17 GM PKG PO SCH (09:00)
[2016-09-23] MEDS: DOCUSATE SODIUM 100 MG CAP PO SCH ×2 (09:00→21:00)
[2016-09-23] MEDS: ONDANSETRON ODT 4 MG TAB PO SCH ×3 (09:42→17:15)
[2016-09-23] MEDS: PANTOPRAZOLE SOD 40 MG DELAYED RELEASE TAB PO SCH (09:42)
[2016-09-23] MEDS: SODIUM CHLORIDE 0.9% FLUSH 5 ML FLUSH IVF SCH ×2 (09:42→21:49)
[2016-09-23] MEDS: MULTIVITAMIN TAB PO SCH (09:43)
--- NOTE | 2016-09-23 14:44 | HHI.PR ---
Subjective Remarks patient is feeling much better up and ambulating around cough- minimal sputum Objective Vitals Vital Signs Date Time Temp Pulse Resp B/P Pulse Ox O2 Delivery O2 Flow Rate FiO2 09/23/16 12:00 96.4 110 18 104/64 93 09/23/16 11:13 92 Venturi Mask 50 09/23/16 08:22 92 Venturi Mask 50 09/23/16 08:00 Venturi Mask 6.00 50 09/23/16 08:00 96.8 97 18 101/60 90 09/23/16 07:43 88 Venturi Mask 26 09/23/16 07:15 20 09/23/16 00:19 96.7 87 21 102/61 96 09/22/16 21:55 91 Venturi Mask 35 09/22/16 20:00 97.7 103 21 107/65 91 09/22/16 19:27 91 Venturi Mask 35 09/22/16 16:00 97.1 100 18 104/70 95 I/O 09/22/16 09/22/16 09/22/16 09/23/16 09/23/16 09/23/16 07:00 15:00 23:00 07:00 15:00 23:00 Intake Total 645 ml 663 ml 672 ml 1135 ml Output Total 400 ml 475 ml 700 ml 380 ml Balance 245 ml 188 ml -28 ml 755 ml Intake Oral 400 ml IV Total 237 ml 263 ml 220 ml Tube Feeding 403 ml 672 ml 615 ml Tube Irrigant 5 ml Other 300 ml Output Urine Total 400 ml 475 ml 700 ml 380 ml # Bowel Movements 0 Result Diagram: 09/23/16 0730 09/23/16 0730 Imaging Last Impressions Chest X-Ray 09/22/16 1620 Signed Impressions: Service Date/Time: Thursday, September 22, 2016 16:56 - CONCLUSION: 1. Mild interval improvement in right lower lobe consolidation. 2. Free air is again noted in the abdomen which may be mildly increased. Sai Hughes MD Abdomen X-Ray 09/19/16 0000 Signed Impressions: Service Date/Time: Monday, September 19, 2016 20:39 - CONCLUSION: Jejunostomy tube injection reveals contrast within multiple loops of small bowel without evidence for leakage. Jori Livingston MD Objective Remarks anicteric lungs - no wheezes,no rales, occasional rhonchi regular rhythm jejunostomy site- dry, soft, good bowel sounds, nontender, no guarding extremities no edema, no calf swelling A/P Assessment and Plan This is a 66-year-old male patient with past medical history which includes high -grade gastric adenocarcinoma diagnosed April 2016, COPD GERD, hyperlipidemia, hypertension. Patient has undergone total of 5 rounds of chemotherapy and 29 radiation treatments for his adenocarcinoma- followed by Dr. Dos Santos. 09/17/2016 for laparoscopic jejunostomy tube placement but kept Gen. surgery. Patient had episode of asymptomatic hypotension increased oxygen demand. Status post shunt jejunostomy tube placement with Jevity 1.5 at 60 cc per hour- tolerating tube feedings Continue by mouth intake as tolerated Acute respiratory Failure with underlying COPD in exacerbation - - improved on 02 NC Possible Pneumonia- hospital acquired- thick sputum- clinically improved on Duonebulization q 4 and q 2 prn on zosyn. change to po antibiotics on DC change to po steroids d/w patient and daughter likely with underlying COPD (chronic heavy smoker) unmasked during this hospitalization post surgery continue good IS efforts OP ff up with Dr. Weinstein on DC Gastric Adenocarcinoma follow-up with oncology Hypertension history Episode of Hypotension during this hospitalization - asymptomatic- BP readings improved- Resolved hold sedating medications/narcotics if blood pressure less than 100 BB discontinued HYperglycemia on chem 7- glucose intolerance ? steroid induced no history of DM check BS tid and hs- no coverage for now- home BG monitoring- [facility] reconsult dietitan- to reassess tube feeding products- with RBS of 283 Home health care nursing consulted- to ff up with jejunostomy site- monitor d/w Home health care agency staff- who is at bedside to monitor and have agency nursing staff to monitor Lovenox 30 mg SQ for DVT prophylaxis Naya Flores MD Sep 23, 2016 14:44
[2016-09-23] MEDS ORDERED: GLUCTES12 (15:00)
--- NOTE | 2016-09-23 15:14 | HHI.FF ---
Face to Face Verification Diagnosis: (1) glucose intolerance (2) Hyperglycemia (3) COPD (chronic obstructive pulmonary disease) Home Health Nursing Order: Medical education Signs/symptoms of disease process Diabetic education Oxygen administration education Nursing assessment with vital signs Instructions: supervise and instruct on gblood glucose monitoring, goals teaching and education I have seen patient Renard Mario on 09/23/16. My clinical findings support the need for the requested home health care services because: Patient has SOB I certify that my clinical findings support that this patient is homebound because: Hx COPD- exertion dyspnea/weakness Naya Flores MD Sep 23, 2016 15:14
--- NOTE | 2016-09-23 15:25 | HHI.PR ---
Subjective Subjective Notes Up to chair Daughter at bedside Objective Vitals/I&O Vital Signs Date Time Temp Pulse Resp B/P Pulse Ox O2 Delivery O2 Flow Rate FiO2 09/23/16 13:01 17 09/23/16 12:00 96.4 110 104/64 93 09/23/16 11:13 Venturi Mask 50 09/23/16 08:00 6.00 Labs Laboratory Tests Test 09/22/16 09/23/16 21:17 07:30 Blood Gas Puncture Site RT RADIAL Blood Gas Patient Temperature 98.6 Blood Gas HCO3 30 Blood Gas Base Excess 6.7 Blood Gas Oxygen Saturation 83 Arterial Blood pH 7.48 Arterial Blood Partial 41 Pressure CO2 Arterial Blood Partial 48 Pressure O2 Arterial Blood Oxygen Content 13.4 Arterial Blood 1.3 Carboxyhemoglobin Arterial Blood Methemoglobin 0.6 Blood Gas Hemoglobin 11.5 Oxygen Delivery Device ROOM AIR Blood Gas Inspired Oxygen 21 White Blood Count 4.9 Red Blood Count 3.59 Hemoglobin 11.0 Hematocrit 32.7 Mean Corpuscular Volume 91.2 Mean Corpuscular Hemoglobin 30.5 Mean Corpuscular Hemoglobin 33.5 Concent Red Cell Distribution Width 15.4 Platelet Count 200 Mean Platelet Volume 8.8 Neutrophils (%) (Auto) 92.8 Lymphocytes (%) (Auto) 4.9 Monocytes (%) (Auto) 2.2 Eosinophils (%) (Auto) 0.0 Basophils (%) (Auto) 0.1 Neutrophils # (Auto) 4.6 Lymphocytes # (Auto) 0.2 Monocytes # (Auto) 0.1 Eosinophils # (Auto) 0.0 Basophils # (Auto) 0.0 CBC Comment DIFF FINAL Differential Comment Sodium Level 130 Potassium Level 3.6 Chloride Level 93 Carbon Dioxide Level 28.9 Anion Gap 8 Blood Urea Nitrogen 11 Creatinine 0.55 Estimat Glomerular Filtration 149 Rate Random Glucose 283 Calcium Level 8.3 Date/Time Procedure Status Source Growth 09/22/16 17:45 Gram Stain - Final Resulted Sputum Expectorated Sputum 09/22/16 17:45 Sputum Culture - Preliminary Resulted Sputum Expectorated Sputum HEAVY GROWTH NORMAL RESPIRATORY JAI... Cardiovascular: Regular Lungs: Clear Abdomen: Other (lap sites c/d/i; J tube in place without complications ) Extremities: No edema A/P Assessment and Plan 66 year old male s/p lap J tube placement -Tolerating TF at goal -Regular diet -Pain controlled -appreciate HEPAS and Pulmonary consults -CM consult for home oxygen, feeding pump, tube feed and HHC -Stable from surgical standpoint I CERTIFY AND ATTEST THAT I PERSONALLY EXAMINED THIS PATIENT IN HIS ROOM. I DIRECTED MS BAKER TO DOCUMENT OUR VISIT AND ENTER THE ORDERS IN THE EMR. ELOISE CHEN MD [facility] Mary Baker Sep 23, 2016 15:25 Eloise Chen MD Sep 28, 2016 10:31
[2016-09-23] MEDS: REMOVE OLD DURAGESIC (FENTANYL) PATCH TD SCH (17:00)
[2016-09-23] MEDS: ENOXAPARIN SODIUM 30 MG/0.3 ML SYRINGE SQ SCH (17:15)
[2016-09-23] MEDS: fentaNYL 25 MCG/HR PATCH T-DERMAL SCH (17:17)
[2016-09-23 19:20] LABS: HEMOGLOBIN A1b 2.1 %; HEMOGLOBIN Ao 82.2 %; HEMOGLOBIN LA1C 3.6 %; HEMOGLOBIN P3 6.2 %
[2016-09-23] MEDS: predniSONE 20 MG TAB PO SCH (21:49)
[2016-09-24] VITALS (9 sets, daily range): BP systolic 111–128; BP diastolic 61–70; PULSE 86–101; RESP 17–20; TEMP 96.4–97; O2SAT 94–100
[2016-09-24] MEDS: RESP: ALBUTEROL 2.5 MG/IPRATROPIUM 0.5 MG NEB (SCH) NEB ×7 (00:49→23:40)
[2016-09-24] MEDS: PIPERACIL-TAZO 3.375 GM PREMIX 50 ML IV SCH ×4 (02:56→20:53)
[2016-09-24] MEDS: PCA - TOTAL MG MORPHINE DELIVERED PER SHIFT SCH ×3 (06:00→20:55)
[2016-09-24] MEDS: [UNRECOGNIZED DRUG - REMARK] G-TUBE SCH ×4 (06:00→17:35)
[2016-09-24] MEDS: oxyCODONE HCL ORAL CONC 20 MG/ML SYRINGE PO SCH ×3 (06:21→17:35)
[2016-09-24] MEDS: MULTIVITAMIN TAB PO SCH (08:05)
[2016-09-24] MEDS: DOCUSATE SODIUM 100 MG CAP PO SCH ×2 (08:05→20:54)
[2016-09-24] MEDS: PANTOPRAZOLE SOD 40 MG DELAYED RELEASE TAB PO SCH (08:05)
[2016-09-24] MEDS: SODIUM CHLORIDE 0.9% FLUSH 5 ML FLUSH IVF SCH ×2 (08:05→20:54)
[2016-09-24] MEDS: POLYETHYLENE GLYCOL 17 GM PKG PO SCH (08:05)
[2016-09-24] MEDS: predniSONE 20 MG TAB PO SCH (08:05)
[2016-09-24] MEDS: ONDANSETRON ODT 4 MG TAB PO SCH ×3 (08:05→17:35)
[2016-09-24] MEDS ORDERED: FULLMIS (09:45)
--- NOTE | 2016-09-24 09:49 | HHI.PR ---
Subjective Remarks feeling better BS reviewed- 200-280s A1C 5.7 Objective Vitals Vital Signs Date Time Temp Pulse Resp B/P Pulse Ox O2 Delivery O2 Flow Rate FiO2 09/24/16 08:13 95 Venturi Mask 50 09/24/16 08:00 96.4 99 17 114/65 99 09/24/16 00:00 96.5 86 19 128/61 95 09/23/16 21:47 96 Venturi Mask 5.00 09/23/16 20:08 95 Venturi Mask 50 09/23/16 20:00 96.4 76 20 103/70 96 09/23/16 18:16 20 09/23/16 18:16 20 09/23/16 16:00 96.6 103 19 108/67 96 09/23/16 12:00 96.4 110 18 104/64 93 09/23/16 11:13 92 Venturi Mask 50 I/O 09/23/16 09/23/16 09/23/16 09/24/16 09/24/16 09/24/16 07:00 15:00 23:00 07:00 15:00 23:00 Intake Total 1135 ml 1106 ml 630 ml 855 ml Output Total 380 ml 1100 ml 300 ml 900 ml Balance 755 ml 6 ml 330 ml -45 ml Intake Oral 525 ml 240 ml 240 ml IV Total 220 ml 50 ml 110 ml Tube Feeding 615 ml 531 ml 390 ml 505 ml Other 300 ml Output Urine Total 380 ml 1100 ml 300 ml 900 ml # Bowel Movements 0 0 0 Result Diagram: 09/23/16 0730 09/23/16 0730 Imaging Last Impressions Chest X-Ray 09/22/16 1620 Signed Impressions: Service Date/Time: Thursday, September 22, 2016 16:56 - CONCLUSION: 1. Mild interval improvement in right lower lobe consolidation. 2. Free air is again noted in the abdomen which may be mildly increased. Sai Hughes MD Abdomen X-Ray 09/19/16 0000 Signed Impressions: Service Date/Time: Monday, September 19, 2016 20:39 - CONCLUSION: Jejunostomy tube injection reveals contrast within multiple loops of small bowel without evidence for leakage. Jori Livingston MD Objective Remarks anicteric lungs - no rales or wheezes regular rhythm jejunostomy site- dry, soft, good bowel sounds, nontender, no guarding extremities no edema, no calf swelling A/P Assessment and Plan This is a 66-year-old male patient with past medical history which includes high -grade gastric adenocarcinoma diagnosed April 2016, COPD GERD, hyperlipidemia, hypertension. Patient has undergone total of 5 rounds of chemotherapy and 29 radiation treatments for his adenocarcinoma- followed by Dr. Dos Santos. 09/17/2016 for laparoscopic jejunostomy tube placement but kept Gen. surgery. Patient had episode of asymptomatic hypotension increased oxygen demand. Status post shunt jejunostomy tube placement with Jevity 1.5 at 60 cc per hour- tolerating tube feedings change tube feedings to Glucerna Continue by mouth intake as tolerated- ADA diet Acute respiratory Failure with underlying COPD in exacerbation - - improved on 02 NC Possible Pneumonia- hospital acquired- thick sputum- clinically improved on Duonebulization q 4 and q 2 prn on zosyn. change to po antibiotics on DC- Levaquin 500 mg po daily x 7 days DC Prednisone. steroid inhalers. d/w patient and daughter likely with underlying COPD (chronic heavy smoker) unmasked during this hospitalization post surgery continue good IS efforts OP ff up with Dr. Weinstein on DC Gastric Adenocarcinoma follow-up with oncology Hypertension history Episode of Hypotension during this hospitalization - asymptomatic- BP readings improved- Resolved hold sedating medications/narcotics if blood pressure less than 100 BB discontinued Glucose intolerance. A1C 5.7 ? steroid induced no history of DM check BS tid and hs- no coverage for now- home BG monitoring- [facility]- [facility]CP reconsult dietitian- to reassess tube feeding products- with RBS of 283 change tube feedings to Glucerna- hold- Dr. de la rosa wants him on Jevity d/w daughter to check glucose at home and record and ff up with PCP he will ff blood sugars in his office- per staff nurse Home health care nursing consulted- to ff up with jejunostomy site- monitor and blood glucose monitoring d/w Home health care agency staff- who is at bedside to monitor and have agency nursing staff to monitor Lovenox 30 mg SQ for DVT prophylaxis Okay for DC today from medical service if TF arranged and cleared by Dr. Weinstein d/w daughter to ff up with a PCP, check blood sugars and record. d/w CM- change TF to glucerna- change back to Jevity 1.5- _GS prefers this TF Naya Flores MD Sep 24, 2016 09:49
[2016-09-24] MEDS ORDERED: SYMB160A INH (10:13)
[2016-09-24] MEDS ORDERED: LEVA500T PO (10:13)
[2016-09-24] MEDS ORDERED: VENTAER INH (10:13)
--- NOTE | 2016-09-24 12:02 | HHI.PR ---
Subjective Remarks 66 YOWM with COPD,Hypoxia, Ca somach s/p resection had Jejunostomy tube placed On 5 LNC Breathing better No Fever Objective Vital Signs Vital Signs Date Time Temp Pulse Resp B/P Pulse Ox O2 Delivery O2 Flow Rate FiO2 09/24/16 10:59 97 Venturi Mask 40 09/24/16 08:13 95 Venturi Mask 50 09/24/16 08:05 Venturi Mask 5.00 50 09/24/16 08:00 96.4 99 17 114/65 99 09/24/16 00:00 96.5 86 19 128/61 95 09/23/16 21:47 96 Venturi Mask 5.00 09/23/16 20:08 95 Venturi Mask 50 09/23/16 20:00 96.4 76 20 103/70 96 09/23/16 18:16 20 09/23/16 18:16 20 09/23/16 16:00 96.6 103 19 108/67 96 09/23/16 12:00 96.4 110 18 104/64 93 I/O 09/23/16 09/23/16 09/23/16 09/24/16 09/24/16 09/24/16 07:00 15:00 23:00 07:00 15:00 23:00 Intake Total 1135 ml 1106 ml 630 ml 855 ml Output Total 380 ml 1100 ml 300 ml 900 ml Balance 755 ml 6 ml 330 ml -45 ml Intake Oral 525 ml 240 ml 240 ml IV Total 220 ml 50 ml 110 ml Tube Feeding 615 ml 531 ml 390 ml 505 ml Other 300 ml Output Urine Total 380 ml 1100 ml 300 ml 900 ml # Bowel Movements 0 0 0 Result Diagram: 09/23/1672909/23/1630 Objective Remarks GENERAL: Thin built male, mild sob SKIN: Warm and dry. HEAD: Normocephalic. EYES: No scleral icterus. No injection or drainage. NECK: Supple, trachea midline. No JVD or lymphadenopathy. CARDIOVASCULAR: Regular rate and rhythm without murmurs, gallops, or rubs. RESPIRATORY: Breath sounds equal bilaterally. No accessory muscle use. GASTROINTESTINAL: Abdomen soft, non-tender, nondistended. MUSCULOSKELETAL: No cyanosis, or edema. BACK: Nontender without obvious deformity. No CVA tenderness. A/P Assessment and Plan severe COPD Hypoxia ca stomach, s/p resection S/p Jejunostomy tube placement PLAN: cont Abx Aerosol nebs Supplement 02 Home 02 DC plans underway Will FU in office Norberto Weinstein MD Sep 24, 2016 12:02
[2016-09-24] MEDS: ENOXAPARIN SODIUM 30 MG/0.3 ML SYRINGE SQ SCH (17:35)
[2016-09-24] MEDS: BUDESONIDE-FORMOTEROL 160/4.5 MCG INHALER INH SCH (20:54)
[2016-09-25] VITALS: BP 97/61; PULSE 77; RESP 19; TEMP 96.6; O2SAT 96
[2016-09-25] MEDS: oxyCODONE HCL ORAL CONC 20 MG/ML SYRINGE PO SCH ×2 (00:50→05:23)
[2016-09-25] MEDS: PIPERACIL-TAZO 3.375 GM PREMIX 50 ML IV SCH ×2 (00:51→08:40)
[2016-09-25] MEDS: PCA - TOTAL MG MORPHINE DELIVERED PER SHIFT SCH (00:51)
[2016-09-25] MEDS: RESP: ALBUTEROL 2.5 MG/IPRATROPIUM 0.5 MG NEB (SCH) NEB ×2 (04:31→07:41)
[2016-09-25] MEDS: [UNRECOGNIZED DRUG - REMARK] G-TUBE SCH ×2 (05:23)
[2016-09-25 07:43] VITALS: O2SAT 98
[2016-09-25 08:00] VITALS: BP 115/77; PULSE 100; RESP 16; TEMP 96; O2SAT 93
[2016-09-25] MEDS: PANTOPRAZOLE SOD 40 MG DELAYED RELEASE TAB PO SCH (08:38)
[2016-09-25] MEDS: ONDANSETRON ODT 4 MG TAB PO SCH (08:39)
[2016-09-25] MEDS: MULTIVITAMIN TAB PO SCH (08:39)
[2016-09-25] MEDS: DOCUSATE SODIUM 100 MG CAP PO SCH (08:41)
[2016-09-25] MEDS: POLYETHYLENE GLYCOL 17 GM PKG PO SCH (08:41)
[2016-09-25] MEDS: SODIUM CHLORIDE 0.9% FLUSH 5 ML FLUSH IVF SCH (08:42)
[2016-09-25] MEDS: BUDESONIDE-FORMOTEROL 160/4.5 MCG INHALER INH SCH (08:42)
[2016-09-25] MEDS: Infusaport/Implanted VAD PRN NS Lock Flush IVF (09:38)
--- NOTE | 2016-10-12 10:22 | RSPPFT ---
DATE OF PROCEDURE: 09/24/16 COMMENTS: Spirometry is consistent with severe air flow obstruction. There is no improvement after the inhalation of bronchodilator. IMPRESSION: 1. Severe airflow obstruction.
== END 2016-09-25 10:12 | disposition home health service (06) | DRG 193 ==
LOC: HSDC 11:02 → HSDI 15:29 → N07B 18:42 → OBSVTOIN 09-23 16:37 → INTOOBSV 09-23 16:37
PROVIDERS: ADMIT Surgery Trauma Surgery; ATTEND Surgery Trauma Surgery
PROC: 0DHA4UZ Insertion of Feeding Device into Jejunum, Percutaneous Endoscopic Approach (ICD-10-PCS; principal; 2016-09-17 13:57)
DX: J18.9 Pneumonia, unspecified organism (principal); J96.00 Acute respiratory failure, unspecified whether with hypoxia or hypercapnia; E46 Unspecified protein-calorie malnutrition; I95.9 Hypotension, unspecified; C16.9 Malignant neoplasm of stomach, unspecified; Z99.81 Dependence on supplemental oxygen; J44.1 Chronic obstructive pulmonary disease with (acute) exacerbation; R62.7 Adult failure to thrive; Z68.1 Body mass index [BMI] 19.9 or less, adult; K21.9 Gastro-esophageal reflux disease without esophagitis; I10 Essential (primary) hypertension; F17.210 Nicotine dependence, cigarettes, uncomplicated; Z92.3 Personal history of irradiation; Z92.21 Personal history of antineoplastic chemotherapy; K59.00 Constipation, unspecified; E78.00 Pure hypercholesterolemia, unspecified; R73.9 Hyperglycemia, unspecified; Y95 Nosocomial condition
CPT/HCPCS: 36600; 71010; 71020; 74000; 80048; 80053; 82805; 82948; 83036; 85007; 85025; 85027; 87070; 87205; 93005; 94060; 94150; 94620; 94640; 94664; G0378; J0690; J1170; J1642; J1650; J1885; J2250; J2270; J2370; J2405; J2543; J2710; J2930; J3010; J7040; J7120; J7512; Q9963